=== PATIENT | female | born 1945 | race Caucasian/White ===

== ENCOUNTER 2019-08-10 21:04 | Emergency (ER) | payer MEDICARE ==
[2019-08-10 22:08] LABS: ABSOLUTE BASOPHILS # (AUTO) 0.1 10^3/uL (0.0-0.2); ABSOLUTE EOSINOPHILS # (AUTO) 0.1 10^3/uL (0.0-0.6); ABSOLUTE LYMPHOCYTES (AUTO) 1.3 10^3/uL (0.5-4.7); ABSOLUTE MONOCYTES (AUTO) 0.6 10^3/uL (0.1-1.4); ABSOLUTE NEUT (AUTO) 4.3 10^3/uL (1.7-8.2); EOSINOPHILS % (AUTO) 2.1 % (0-6); HEMATOCRIT 37.7 % (36.0-47.0); HEMOGLOBIN 12.5 g/dL (12.0-15.5); LYMPHOCYTES % (AUTO) 19.6 % (13-45); MEAN CORPUSCULAR HEMOGLOBIN 26.7 pg (27.0-33.4); MEAN CORPUSCULAR HGB CONC 33.2 g/dL (32.0-36.0); MEAN CORPUSCULAR VOLUME 81 fl (80-97); MONOCYTES % (AUTO) 9.5 % (3-13); PLATELET COUNT 219 10^3/uL (150-450); RED BLOOD COUNT 4.69 10^6/uL (3.72-5.28); RED CELL DISTRIBUTION WIDTH 14.5 % (11.5-14.0); SEGMENTED NEUTROPHILS % (AUTO) 67.8 % (42-78); TOTAL CELLS COUNTED % (AUTO) 100 %; WHITE BLOOD COUNT 6.4 10^3/uL (4.0-10.5)
--- NOTE | 2019-08-10 22:24 | ER Document Report ---
ED General - General Chief Complaint: Other Stated Complaint: RIGHT FOOT/RIGHT LEG PAIN Time Seen by Provider: 08/10/19 21:40 Mode of Arrival: Ambulatory Information source: Patient Notes: 73-year-old female presented to ED for complaint of increasing bruising starting yesterday. She states she just moved to the area and has not gotten to see her primary care doctor yet. She states her primary care is [facility] in [place]. She states she does have a past medical history of hypothyroid, pedal edema, anxiety and depression. She has had gallbladder removed gastric bypass and a left knee replacement. She also has arthritis. She came today mainly because of the increase in bruising and her family members were concerned and wanted her to come to the doctor. She states she was not really concerned but to satisfy everybody she did come. We will get some blood work to ensure that there is no abnormalities in her platelets or blood work. TRAVEL OUTSIDE OF THE [place] IN LAST 30 DAYS: No - HPI Onset: Yesterday Onset/Duration: Gradual Quality of pain: No pain Severity: None Pain Level: 0 Associated symptoms: Other - Increased bruising to arms and legs Exacerbated by: Denies Relieved by: Denies Similar symptoms previously: Yes Recently seen / treated by doctor: No Past Medical History - General Information source: Patient - Social History Smoking Status: Never Smoker Chew tobacco use (# tins/day): No Frequency of alcohol use: None Drug Abuse: None Lives with: Family Family History: Reviewed & Not Pertinent Patient has suicidal ideation: No Patient has homicidal ideation: No - Past Medical History Cardiac Medical History: Reports: Other - Pedal edema Pulmonary Medical History: Reports: None EENT Medical History: Reports: None Neurological Medical History: Reports: None Endocrine Medical History: Reports: Hx Hypothyroidism Renal/ Medical History: Reports: None Malignancy Medical History: Reports: None GI Medical History: Reports: None Musculoskeletal Medical History: Reports Hx Arthritis, Reports Hx Musculoskeletal Deformity Skin Medical History: Reports None Psychiatric Medical History: Reports: Hx Anxiety, Hx Depression Traumatic Medical History: Reports: None Infectious Medical History: Reports: None Past Surgical History: Reports: Hx Cholecystectomy, Hx Gastric Bypass Surgery, Hx Orthopedic Surgery - Left knee replacement - Immunizations Immunizations up to date: Yes Review of Systems - Review of Systems Constitutional: No symptoms reported EENT: No symptoms reported Cardiovascular: No symptoms reported Respiratory: No symptoms reported Gastrointestinal: No symptoms reported Genitourinary: No symptoms reported Female Genitourinary: No symptoms reported Musculoskeletal: No symptoms reported Skin: Other - Creasing bruising Hematologic/Lymphatic: No symptoms reported Neurological/Psychological: No symptoms reported -: Yes All other systems reviewed and negative Physical Exam - Vital signs Vitals: Temp Pulse Resp BP Pulse Ox 97.8 F 128 H 18 147/88 H 95 08/10/19 21:09 08/10/19 21:09 08/10/19 21:09 08/10/19 21:09 08/10/19 21:09 Interpretation: Normal. No: Hypotensive, Hypertensive, Bradycardic, Tachycardic - 82, Hypoxic, Tachypneic, Febrile - General General appearance: Appears well, Alert - HEENT Head: Normocephalic, Atraumatic Eyes: Normal Pupils: PERRL - Respiratory Respiratory status: No respiratory distress Chest status: Nontender Breath sounds: Normal Chest palpation: Normal - Cardiovascular Rhythm: Regular Heart sounds: Normal auscultation Murmur: No - Abdominal Inspection: Normal Distension: No distension Bowel sounds: Normal Tenderness: Nontender Organomegaly: No organomegaly - Back Back: Normal, Nontender - Extremities General upper extremity: Normal inspection, Nontender, Normal color, Normal ROM, Normal temperature General lower extremity: Normal inspection, Nontender, Normal color, Normal ROM, Normal temperature, Normal weight bearing. No: Michelle's sign - Neurological Neuro grossly intact: Yes Cognition: Normal Orientation: AAOx4 [place] Coma Scale Eye Opening: Spontaneous Katty Coma Scale Verbal: Oriented [place] Coma Scale Motor: Obeys Commands Katty Coma Scale Total: 15 Speech: Normal Motor strength normal: LUE, RUE, LLE, RLE Sensory: Normal - Psychological Associated symptoms: Normal affect, Normal mood - Skin Skin Temperature: Warm Skin Moisture: Dry Skin Color: Normal, Ecchymosis - Increased bruising to arms and legs no pain at sites Course - Re-evaluation Re-evalutation: 08/10/19 23:30 Discussed labs with patient will report of labs given to patient to follow-up with her primary doctor. Will discharge patient home. Patient denies have any history of anything that should cause her pulse to be what it was shown at pit. I did get a pulse of 82. - Vital Signs Vital signs: Temp Pulse Resp BP Pulse Ox 97.8 F 128 H 18 147/88 H 95 08/10/19 21:09 08/10/19 21:09 08/10/19 21:09 08/10/19 21:09 08/10/19 21:09 - Laboratory Result Diagrams: 08/10/19 21:46 08/10/19 21:46 Laboratory results interpreted by me: 08/10/19 08/10/19 21:46 21:46 MCH 26.7 L RDW 14.5 H Carbon Dioxide 33 H BUN 24 H Glucose 131 H Total Protein 6.2 L Discharge - Discharge Clinical Impression: increased bruising to leg Condition: Stable Disposition: HOME, SELF-CARE Additional Instructions: You were seen today for increased bruising to the legs. He states there was no injuries. There is no tenderness to palpation. You will need to follow-up with your primary care doctor. Please put a call into him tomorrow and schedule an appointment. I have given you a copy of your lab reports please take these with you to the doctor. Please do not take any aspirin or ibuprofen or naproxen until you follow-up with the doctor. FOLLOW-UP CARE: If you have been referred to a physician for follow-up care, call the physicians office for an appointment as you were instructed or within the next two days. If you experience worsening or a significant change in your symptoms, notify the physician immediately or return to the Emergency Department at any time for re-evaluation.
[2019-08-10 22:26] LABS: ALBUMIN 3.7 g/dL (3.5-5.0); ALKALINE PHOSPHATASE 107 U/L (38-126); ANION GAP 6 (5-19); ASPARTATE AMINO TRANSFERASE 18 U/L (14-36); BILIRUBIN,DIRECT 0.1 mg/dL (0.0-0.4); BILIRUBIN,TOTAL 0.4 mg/dL (0.2-1.3); BLOOD UREA NITROGEN 24 mg/dL (7-20); CALCIUM 8.9 mg/dL (8.4-10.2); CARBON DIOXIDE 33 mmol/L (22-30); CHLORIDE 99 mmol/L (98-107); GLUCOSE 131 mg/dL (75-110); TOTAL PROTEIN 6.2 g/dL (6.3-8.2)
[2019-08-10 23:16] LABS: INTERNATIONAL RATION (INR) 0.99; PROTHROMBIN TIME 13.1 SEC (11.4-15.4)
[2019-08-10 23:17] LABS: PARTIAL THROMBOPLASTIN TIME 32.8 SEC (23.5-35.8)
[2019-08-10 23:33] VITALS: BP 145/80
== END 2019-08-10 23:33 | disposition home or self-care (01) ==
LOC: ER 21:04
DX: R23.3 Spontaneous ecchymoses (principal); M79.671 Pain in right foot; M79.601 Pain in right arm; Z98.84 Bariatric surgery status; Z96.652 Presence of left artificial knee joint
CPT/HCPCS: 36415; 80053; 85025; 85610; 85730; 99283

== ENCOUNTER 2020-01-06 08:16 | Day surgery (SDC) | payer MEDICARE, OTHER ==
[~2020-01-06 08:16] MED LIST: ACETAMINOPHEN 325 MG TABLET PO PRN; CEFAZOLIN 1 GM/D5W RTU 1 GM/50 ML RTUPB IV ONE; CEFAZOLIN 1 GM/D5W RTU 1 GM/50 ML RTUPB IV PRN; RINGERS SOLUTION,LACTATED 1,000 ML IV PRN
[2020-01-06 09:02] LABS: HEMATOCRIT 35.4 % (36.0-47.0); HEMOGLOBIN 11.9 g/dL (12.0-15.5); MEAN CORPUSCULAR HEMOGLOBIN 26.3 pg (27.0-33.4); MEAN CORPUSCULAR HGB CONC 33.7 g/dL (32.0-36.0); MEAN CORPUSCULAR VOLUME 78 fl (80-97); PLATELET COUNT 171 10^3/uL (150-450); RED BLOOD COUNT 4.52 10^6/uL (3.72-5.28)
[2020-01-06] MEDS ORDERED: BUPIVACAINE INJ/PF LIPOSOME/PF 266 MG/20 ML SDV ONE (09:02)
--- NOTE | 2020-01-06 09:03 | RADIOLOGY REPORT (SQ) ---
EXAM DESCRIPTION: CHEST SINGLE VIEW COMPLETED DATE/TIME: 01/06/2020 8:41 am REASON FOR STUDY: preop COMPARISON: None. EXAM PARAMETERS: NUMBER OF VIEWS: One view. TECHNIQUE: Single frontal radiographic view of the chest acquired. RADIATION DOSE: NA LIMITATIONS: None. FINDINGS: LUNGS AND PLEURA: No opacities, masses or pneumothorax. No pleural effusion. MEDIASTINUM AND HILAR STRUCTURES: No masses. Contour normal. HEART AND VASCULAR STRUCTURES: Heart normal in size. Normal vasculature. BONES: No acute findings. HARDWARE: None in the chest. OTHER: No other significant finding. IMPRESSION: NO ACUTE RADIOGRAPHIC FINDING IN THE CHEST. TECHNICAL DOCUMENTATION: JOB ID: [id number] 2010 [employer]- All Rights Reserved Reading location - IP/workstation name: [email or web address]
[2020-01-06 09:29] LABS: WHITE BLOOD COUNT 1.6 10^3/uL (4.0-10.5)
[2020-01-06 09:32] LABS: ABSOLUTE LYMPHOCYTES# (MANUAL) 0.4 10^3/uL (0.5-4.7); ABSOLUTE MONOCYTES # (MANUAL) 0.1 10^3/uL (0.1-1.4); BASOPHILS % (MANUAL) 0 % (0-2); EOSINOPHILS % (MANUAL) 10 % (0-6); LYMPHOCYTES % (MANUAL) 22 % (13-45); MONOCYTES % (MANUAL) 6 % (3-13); SEGMENTED NEUTROPHILS % (MAN) 62 % (42-78); TOTAL CELLS COUNTED 50
[2020-01-06 09:34] LABS: ANISOCYTOSIS 1+; OVALOCYTES SLIGHT; TEAR DROP CELLS SLIGHT; TOXIC GRANULATION SLIGHT
[2020-01-06 09:35] LABS: PLATELET COMMENT ADEQUATE
[2020-01-06] MEDS ORDERED: MIDAZOLAM 2 MG/2 ML INJ ONE (09:44)
[2020-01-06] MEDS ORDERED: FENTANYL CITRATE INJ/PF 100 MCG/2 ML AMPUL ONE (09:44)
[2020-01-06] MEDS ORDERED: PROPOFOL INJ 200 MG/20 ML VIAL IV ONE (09:44)
[2020-01-06] MEDS ORDERED: LIDOCAINE 1%/EPINEPHRINE INJ 20 ML VIAL ONE (10:06)
[2020-01-06] MEDS ORDERED: OXYCODONE-ACETAMINOPHEN 5-325 MG TABLET PO PRN ×3 (10:29→10:49)
[2020-01-06] MEDS ORDERED: ONDANSETRON HCL INJ/PF 4 MG/2 ML SDV IV PRN ×2 (10:29→13:38)
[2020-01-06] MEDS ORDERED: FENTANYL CITRATE INJ/PF 100 MCG/2 ML AMPUL IV PRN ×6 (10:29→13:38)
[2020-01-06] MEDS ORDERED: DIPHENHYDRAMINE HCL 50 MG/ML VIAL IV PRN ×2 (10:29→13:38)
[2020-01-06] MEDS ORDERED: MORPHINE SULFATE 10 MG/ML INJ IV PRN ×2 (10:29→13:38)
[2020-01-06] MEDS ORDERED: MEPERIDINE HCL/PF INJ 25 MG/1 ML DISP.SYRIN IV PRN ×2 (10:29→13:38)
[2020-01-06] MEDS ORDERED: ONDANSETRON HCL INJ/PF 4 MG/2 ML SDV ONE (10:36)
--- NOTE | 2020-01-06 10:47 | Operative Report ---
Nonrecallable Operative Report DATE OF SURGERY: 01/06/20 PREOPERATIVE DIAGNOSIS: Uterine cancer POSTOPERATIVE DIAGNOSIS: Uterine cancer OPERATION: Port-A-Cath placement right chest SURGEON: MIGUEL HILLMAN ANESTHESIA: Moderate Sedation TISSUE REMOVED OR ALTERED: None COMPLICATIONS: None ESTIMATED BLOOD LOSS: 10 cc PROCEDURE: Patient was brought to the operating awake alert stable condition placed in the operative supine position and given IV sedation. The right chest and neck were prepped and draped in usual sterile fashion for the procedure. Using 1% lidocaine with epinephrine a skin wheal was made on the anterior right chest wall and then the subclavian vein was cannulated with a 16-gauge needle. Through the needle we placed the J-wire confirmed on fluoroscopy to be in the superior vena cava. Over the J-wire we then placed the dilator introducer under direct vision wall under fluoroscopy and remove the wire. Through the introducer we then placed the catheter. The catheter was positioned in the supra vena cava. The tear- away introducer was torn away. Attention was then turned to the right chest wall. Skin wheal was made on the anterior right chest wall with 1% lidocaine with epinephrine. A transverse incision was made about 2 cm long dissection was carried down through subcutaneous tissue with the 15 blade a skin pocket was then created with the Bovie cautery. From the skin popped kit to the subclavian stick site we used the tunnel maker to a tunneled catheter. Was then cut to size and attached to the port which was placed underneath the skin. Good position was confirmed with fluoroscopy. The subcutaneous tissue was then reapproximated interrupted 3-0 Vicryl and the skin was reapproximated intracuticular 4-0 Biosyn. Steri-Strips completed the procedure. Sponge needle counts were correct x2 the patient was then transferred recovery in stable condition no complications
--- NOTE | 2020-01-06 10:48 | Discharge Summary ---
Discharge Summary (SDC) - Discharge Final Diagnosis: Uterine cancer Date of Surgery: 01/06/20 Discharge Date: 01/06/20 Condition: Good Referrals: GINI DENG PA-C [Primary Care Provider] - Discharge Activity: Activity As Tolerated Report the Following to Your Physician Immediately: Shortness of Breath - Patient is to follow-up in surgery clinic in 7 to 10 days
--- NOTE | 2020-01-06 11:20 | RADIOLOGY REPORT (SQ) ---
EXAM DESCRIPTION: CHEST SINGLE VIEW COMPLETED DATE/TIME: 01/06/2020 11:03 am REASON FOR STUDY: s/p liliya cath. COMPARISON: Earlier same day. EXAM PARAMETERS: NUMBER OF VIEWS: One view. TECHNIQUE: Single frontal radiographic view of the chest acquired. RADIATION DOSE: NA LIMITATIONS: None. FINDINGS: LUNGS AND PLEURA: No opacities, masses or pneumothorax. No pleural effusion. MEDIASTINUM AND HILAR STRUCTURES: No masses. Contour normal. HEART AND VASCULAR STRUCTURES: Heart normal in size. Normal vasculature. BONES: No acute findings. HARDWARE: None in the chest. OTHER: Right-sided port tip overlying SVC. IMPRESSION: Good position of right-sided port. No pneumothorax. TECHNICAL DOCUMENTATION: JOB ID: [id number] 2010 [employer]- All Rights Reserved Reading location - IP/workstation name: [email or web address]
--- NOTE | 2020-01-06 11:56 | RADIOLOGY REPORT (SQ) ---
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 FLUOROSCOPY TIME: 0.8 minutes 5 images saved to PACS. TECHNIQUE: Intra-operative images acquired during surgical procedure to evaluate progress. NUMBER OF IMAGES: 5 LIMITATIONS: None. FINDINGS: Right-sided central line tip overlies SVC. IMPRESSION: IMAGE(S) OBTAINED DURING PROCEDURE. COMMENT: Quality ID 145: Final reports for procedures using fluoroscopy that document radiation exp osure indices, or exposure time and number of fluorographic images (if radiation exposure indices are not available) Please consult full operative report of the attending physician for description of the procedure. TECHNICAL DOCUMENTATION: JOB ID: [id number] 2010 [employer]- All Rights Reserved Reading location - IP/workstation name: [email or web address]
[2020-01-06 12:33] VITALS: BP 132/66
== END 2020-01-06 12:10 | disposition home or self-care (01) ==
LOC: OROUT 08:16
PROVIDERS: ATTEND Surgery
DX: C54.3 Malignant neoplasm of fundus uteri (principal); Z79.899 Other long term (current) drug therapy; D64.9 Anemia, unspecified; E53.8 Deficiency of other specified B group vitamins; E03.9 Hypothyroidism, unspecified
CPT/HCPCS: 36561; 36415; 84132; 85025; 71045; 77001; C1766; C1788; Q9967; J2250; J0690; J3010; J3490; J2405; J2704; J1642; C9290

== ENCOUNTER → 2020-05-10 | Outpatient (CLI) | payer MEDICARE, OTHER ==
--- NOTE | 2020-05-10 09:38 | RADIOLOGY REPORT (SQ) ---
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 Images reviewed with lung, soft tissue and bone windows. Reconstructed coronal a nd sagittal MPR images reviewed. All images stored on PACS. All CT scanners at this facility use dose modulation, iterative reconstruction, and/or weight based d osing when appropriate to reduce radiation dose to as low as reasonably achievable (ALARA). [facility]: Dose Right [facility]: CareDose [facility]: Dose Right [facility]: Teradose 4D [facility]: [employer] RADIATION DOSE: CT Rad equipment meets quality standard of care and radiation dose reduction techniq ues were employed. CTDIvol: 8.2 - 14.5 mGy. DLP: 2811 mGy-cm. . LIMITATIONS: None. FINDINGS: AXILLAE: No adenopathy. CHEST WALL: No masses. No subcutaneous air. LUNGS: No lung nodules. No consolidation. PLEURA: Focal nodular pleural thickening in the left upper lobe posteriorly this is stable from prior study. THYROID: Not imaged. HILAR AND MEDIASTINAL STRUCTURES: No identified masses or abnormal nodes. AORTA AND GREAT VESSELS: No aneurysm. No dissection. PULMONARY ARTERIES: No identified pulmonary emboli. Study not optimized for the pulmonary arteries. HEART: No pericardial effusion. HARDWARE AND LIFELINES: Dsjile-U-Rszd is in place on the right. Catheter tip lies in the SVC. BONES: No significant finding. OTHER: No other significant finding. IMPRESSION: No evidence of metastatic disease in the chest. COMPARISON: None. RADIATION DOSE: CT Rad equipment meets quality standard of care and radiation dose reduction techniq ues were employed. CTDIvol: 8.2 - 14.5 mGy. DLP: 2811 mGy-cm. mGy. TECHNIQUE: CT scan of the abdomen and pelvis performed with intravenous and oral contrast using lisa matt scanning technique with dynamic intravenous contrast injection. Images reviewed with lung, soft tissue and bone windows. Reconstructed coronal and sagittal MPR images reviewed. Delayed images for evaluation of the urinary system also acquired and evaluated. All images stored on PACS. All CT scanners at this facility use dose modulation, iterative reconstruction, and/or weight based d osing when appropriate to reduce radiation dose to as low as reasonably achievable (ALARA). [facility]: Dose Right [facility]: [employer] [facility]: Dose Right [facility]: Teradose 4D [facility]: [employer] FINDINGS: LIVER: No masses. Normal size. Mild intrahepatic biliary ductal dilatation which is unch anged from prior study. SPLEEN: Normal size. No focal lesions. PANCREAS: No masses. No significant calcifications. No adjacent inflammation or peripancreatic flui d collections. Pancreatic duct not dilated. GALLBLADDER: Prior cholecystectomy. ADRENAL GLANDS: No significant masses or asymmetry. RIGHT KIDNEY AND URETER: No solid masses. Numerous peripelvic cysts. No significant calcifications . No hydronephrosis or hydroureter. LEFT KIDNEY AND URETER: No solid masses. Numerous peripelvic cysts. No significant calcifications. No hydronephrosis or hydroureter. AORTA AND VESSELS: No aneurysm. No dissection. Renal arteries, SMA, celiac without stenosis. RETROPERITONEUM: No retroperitoneal adenopathy, hemorrhage or masses. LARGE AND SMALL BOWEL: No dilatation. No masses. No wall thickening. APPENDIX: Not visualized. ABDOMINAL WALL: No hernia or masses. PERITONEAL CAVITY: No free air. No free fluid. No peritoneal implants or masses. PELVIS: Prior hysterectomy. BONES: No significant or acute findings. OTHER: No other significant finding. IMPRESSION: No evidence of metastatic disease in the abdomen or pelvis. TECHNICAL DOCUMENTATION: JOB ID: [id number] Quality ID # 436: Final reports with documentation of one or more dose reduction techniques (e.g., Au tomated exposure control, adjustment of the mA and/or kV according to patient size, use of iterative reconstruction technique) 2010 [employer]- All Rights Reserved Reading location - IP/workstation name: [email or web address]
--- NOTE | 2020-05-10 09:38 | RADIOLOGY REPORT (SQ) ---
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 Images reviewed with lung, soft tissue and bone windows. Reconstructed coronal a nd sagittal MPR images reviewed. All images stored on PACS. All CT scanners at this facility use dose modulation, iterative reconstruction, and/or weight based d osing when appropriate to reduce radiation dose to as low as reasonably achievable (ALARA). [facility]: Dose Right [facility]: CareDose [facility]: Dose Right [facility]: Teradose 4D [facility]: [employer] RADIATION DOSE: CT Rad equipment meets quality standard of care and radiation dose reduction techniq ues were employed. CTDIvol: 8.2 - 14.5 mGy. DLP: 2811 mGy-cm. . LIMITATIONS: None. FINDINGS: AXILLAE: No adenopathy. CHEST WALL: No masses. No subcutaneous air. LUNGS: No lung nodules. No consolidation. PLEURA: Focal nodular pleural thickening in the left upper lobe posteriorly this is stable from prior study. THYROID: Not imaged. HILAR AND MEDIASTINAL STRUCTURES: No identified masses or abnormal nodes. AORTA AND GREAT VESSELS: No aneurysm. No dissection. PULMONARY ARTERIES: No identified pulmonary emboli. Study not optimized for the pulmonary arteries. HEART: No pericardial effusion. HARDWARE AND LIFELINES: Hcctks-W-Faua is in place on the right. Catheter tip lies in the SVC. BONES: No significant finding. OTHER: No other significant finding. IMPRESSION: No evidence of metastatic disease in the chest. COMPARISON: None. RADIATION DOSE: CT Rad equipment meets quality standard of care and radiation dose reduction techniq ues were employed. CTDIvol: 8.2 - 14.5 mGy. DLP: 2811 mGy-cm. mGy. TECHNIQUE: CT scan of the abdomen and pelvis performed with intravenous and oral contrast using lisa matt scanning technique with dynamic intravenous contrast injection. Images reviewed with lung, soft tissue and bone windows. Reconstructed coronal and sagittal MPR images reviewed. Delayed images for evaluation of the urinary system also acquired and evaluated. All images stored on PACS. All CT scanners at this facility use dose modulation, iterative reconstruction, and/or weight based d osing when appropriate to reduce radiation dose to as low as reasonably achievable (ALARA). [facility]: Dose Right [facility]: SureCare [facility]: Dose Right [facility]: Teradose 4D [facility]: [employer] FINDINGS: LIVER: No masses. Normal size. Mild intrahepatic biliary ductal dilatation which is unch anged from prior study. SPLEEN: Normal size. No focal lesions. PANCREAS: No masses. No significant calcifications. No adjacent inflammation or peripancreatic flui d collections. Pancreatic duct not dilated. GALLBLADDER: Prior cholecystectomy. ADRENAL GLANDS: No significant masses or asymmetry. RIGHT KIDNEY AND URETER: No solid masses. Numerous peripelvic cysts. No significant calcifications . No hydronephrosis or hydroureter. LEFT KIDNEY AND URETER: No solid masses. Numerous peripelvic cysts. No significant calcifications. No hydronephrosis or hydroureter. AORTA AND VESSELS: No aneurysm. No dissection. Renal arteries, SMA, celiac without stenosis. RETROPERITONEUM: No retroperitoneal adenopathy, hemorrhage or masses. LARGE AND SMALL BOWEL: No dilatation. No masses. No wall thickening. APPENDIX: Not visualized. ABDOMINAL WALL: No hernia or masses. PERITONEAL CAVITY: No free air. No free fluid. No peritoneal implants or masses. PELVIS: Prior hysterectomy. BONES: No significant or acute findings. OTHER: No other significant finding. IMPRESSION: No evidence of metastatic disease in the abdomen or pelvis. TECHNICAL DOCUMENTATION: JOB ID: [id number] Quality ID # 436: Final reports with documentation of one or more dose reduction techniques (e.g., Au tomated exposure control, adjustment of the mA and/or kV according to patient size, use of iterative reconstruction technique) 2010 [employer]- All Rights Reserved Reading location - IP/workstation name: [email or web address]
== END ==
LOC: RAD 08:33
PROVIDERS: ATTEND Internal Medicine
DX: C54.3 Malignant neoplasm of fundus uteri (principal)
CPT/HCPCS: 71260; 74177; 82565

== ENCOUNTER 2020-07-28 08:57 | Inpatient (IN) | payer MEDICARE, OTHER ==
[2020-07-28] MEDS ORDERED: FENTANYL CITRATE INJ/PF 100 MCG/2 ML AMPUL IV ONE (10:36)
[2020-07-28] MEDS ORDERED: ONDANSETRON HCL INJ/PF 4 MG/2 ML SDV IV ONE (10:37)
[2020-07-28] MEDS ORDERED: NORMAL SALINE 1000 ML 500 ML IV ONE (10:37)
--- NOTE | 2020-07-28 11:01 | ER Document Report ---
Entered by JHON ADHIKARI SCRIBE 07/28/20 1028 Acting as scribe for:CINDY RAMIERZ MD ED General - General Chief Complaint: R sided hip pain Stated Complaint: FALL Time Seen by Provider: 07/28/20 10:25 Primary Care Provider: JOSETTE CESAR [NO FARHAD MD] - Follow up as needed Mode of Arrival: Ambulatory Information source: Patient Notes: This 74 year old female patient presents to the emergency department today with complaints of right hip pain resulting from a fall. Patient reports that she was getting up to go to the bathroom and she thinks her foot got tangled in her bed comforter and she fell. She reports initially she didn't feel much pain but when her son came to help her back into bed she had excruciating pain. Patient reports that if he lies perfectly still on her left side she does not have any pain but any movement causes severe pain. Patient mentions that she must have hit her eye during the fall as there is a small bruise to her left upper eyelid. Patient's past history is significant for uterine cancer treated with hysterectomy, chemotherapy which she has finished, and radiation therapy which she finished about 3 weeks ago. TRAVEL OUTSIDE OF THE [place] IN LAST 30 DAYS: No - Related Data Allergies/Adverse Reactions: No Known Allergies Allergy (Verified 07/28/20 12:08) Home Medications: thyroid medication, anti-depressant, anti-anxiety, started Bactrim for UTI Past Medical History - General Information source: Patient - Social History Smoking Status: Never Smoker Cigarette use (# per day): No Chew tobacco use (# tins/day): No Smoking Education Provided: No Frequency of alcohol use: Rare Drug Abuse: None Lives with: Family Family History: Reviewed & Not Pertinent - Past Medical History Cardiac Medical History: Reports: Hx Hypercholesterolemia, Hx Hypertension Endocrine Medical History: Reports: Hx Hypothyroidism Renal/ Medical History: Reports: Hx Kidney Stones Malignancy Medical History: Reports: Other - Uterine cancer treated with hysterectomy, chemotherapy, and radiation thera Musculoskeletal Medical History: Reports Hx Arthritis, Reports Hx Musculoskeletal Deformity Psychiatric Medical History: Reports: Hx Anxiety, Hx Depression Past Surgical History: Reports: Hx Cholecystectomy, Hx Gastric Bypass Surgery - B2 with a Marilyn-en-Y, Hx Hysterectomy, Hx Orthopedic Surgery - Left knee replacement - Immunizations Immunizations up to date: Yes Hx Pneumococcal Vaccination: 07/20/20 Review of Systems - Review of Systems Constitutional: No symptoms reported EENT: No symptoms reported Cardiovascular: No symptoms reported Respiratory: No symptoms reported Gastrointestinal: No symptoms reported Genitourinary: No symptoms reported Female Genitourinary: No symptoms reported Musculoskeletal: See HPI, Joint pain - right hip Skin: No symptoms reported Hematologic/Lymphatic: No symptoms reported Neurological/Psychological: No symptoms reported -: Yes All other systems reviewed and negative Physical Exam - Vital signs Vitals: Temp Pulse Resp BP Pulse Ox 98.4 F 104 H 20 136/61 H 96 07/28/20 09:17 07/28/20 09:17 07/28/20 09:17 07/28/20 09:17 07/28/20 09:17 - Notes Notes: Physical Exam: General: Alert, appears uncomfortable. HEENT: Normocephalic. Atraumatic. PERRL. Extraocular movements intact. Oropharynx clear. Neck: Supple. Non-tender. Respiratory: No respiratory distress. Clear and equal breath sounds bilaterally. Cardiovascular: Regular rate and rhythm. Abdominal: Normal Inspection. Non-tender. No distension. Normal Bowel Sounds. Back: No gross abnormalities. Upper extremities: Normal inspection. Normal ROM. Lower extremities: Exquisite right hip tenderness to palpation. RLE is shortened and externally rotated. Wearing a pelvic binder. Neurological: Normal cognition. AAOx4. Normal speech. Psychological: Normal affect. Normal Mood. Skin: Warm. Dry. Normal color. Course - Vital Signs Vital signs: Temp Pulse Resp BP Pulse Ox 98.4 F 104 H 20 136/61 H 96 07/28/20 09:17 07/28/20 09:17 07/28/20 09:17 07/28/20 09:17 07/28/20 09:17 - Laboratory Result Diagrams: 07/28/20 11:18 07/28/20 11:18 Laboratory results interpreted by me: 07/28/20 07/28/20 07/28/20 11:18 11:18 12:13 RBC 3.15 L Hgb 10.5 L Hct 29.2 L RDW 14.8 H Plt Count 145 L Seg Neuts % (Manual) 88 H Lymphocytes % (Manual) 10 L Monocytes % (Manual) 2 L Abs Lymphs (Manual) 0.4 L Glucose 123 H Urine Protein 30 H Urine Urobilinogen 2.0 H Ur Leukocyte Esterase LARGE H - Diagnostic Test Radiology reviewed: Image reviewed, Reports reviewed - Right hip intertrochanteric fracture. Chest x-ray does not show acute changes, there is a right-sided Port-A-Cath. - EKG Interpretation by Me EKG shows normal: Sinus rhythm, [place], Intervals, QRS Complexes, ST-T Waves Rate: Tachycardia - 101 [place]/QRS: RBBB, IVCD Voltage: Consistent with LVH When compared to previous EKG there are: Previous EKG unavailable - Consults Dr. Simon Time consulted: 11:32 Consulted provider: will see as inpatient Dr. Patterson Time consulted: 12:38 Consulted provider: will come to ER Discharge - Discharge Clinical Impression: Closed right hip fracture Qualifiers: Encounter type: initial encounter Qualified Code(s): S72.001A - Fracture of unspecified part of neck of right femur, initial encounter for closed fracture Condition: Stable Disposition: ADMITTED INPATIENT Admitting Provider: Leonardo (Hospitalist) Unit Admitted: Surgical Floor Referrals: LOCALMD,NO [NO LOCAL MD] - Follow up as needed I personally performed the services described in the documentation, reviewed and edited the documentation which was dictated to the scribe in my presence, and it accurately records my words and actions.
--- NOTE | 2020-07-28 11:20 | RADIOLOGY REPORT (SQ) ---
EXAM DESCRIPTION: CHEST SINGLE VIEW IMAGES COMPLETED DATE/TIME: 07/28/2020 11:10 am REASON FOR STUDY: fall, hip pain COMPARISON: CT chest 12/08/2019 Chest films 01/06/2020 EXAM PARAMETERS: NUMBER OF VIEWS: One view. TECHNIQUE: Single frontal radiographic view of the chest acquired. RADIATION DOSE: NA LIMITATIONS: Lordotic portable film FINDINGS: LUNGS AND PLEURA: No opacities, masses or pneumothorax. No pleural effusion. MEDIASTINUM AND HILAR STRUCTURES: No masses. Contour normal. HEART AND VASCULAR STRUCTURES: Heart normal in size. Normal vasculature. BONES: No acute findings. HARDWARE: Right-sided permanent central line tip superior vena cava OTHER: No other significant finding. IMPRESSION: NO ACUTE RADIOGRAPHIC FINDING IN THE CHEST. TECHNICAL DOCUMENTATION: JOB ID: [id number] 2010 [employer]- All Rights Reserved Reading location - IP/workstation name: [email or web address]
--- NOTE | 2020-07-28 11:22 | RADIOLOGY REPORT (SQ) ---
EXAM DESCRIPTION: HIP RIGHT AP/LATERAL IMAGES COMPLETED DATE/TIME: 07/28/2020 11:10 am REASON FOR STUDY: fall, hip pain COMPARISON: None. NUMBER OF VIEWS: Two views. TECHNIQUE: AP pelvis and additional surgical lateralview of the right hip. LIMITATIONS: Buckle artifact over the left hip on the AP pelvis film FINDINGS: MINERALIZATION: Normal. RIGHT HIP: Acute intertrochanteric right proximal femoral fracture with significant varus angulation and foreshortening at the fracture site LEFT HIP: Partly obscured by artifact from buckle. No fracture or dislocation. No worrisome bone le sions. Limited views. PUBIS AND ISCHIUM: No fracture. PELVIS: No fracture. SACRUM: No fracture or dislocation. No worrisome bone lesions. LOWER LUMBAR SPINE: No fracture or dislocation. No worrisome bone lesions. No significant disc disea se. SOFT TISSUES: No findings. OTHER: No other significant finding. IMPRESSION: Acute right proximal femur intertrochanteric fracture with significant varus angulation and foreshortening at the fracture site TECHNICAL DOCUMENTATION: JOB ID: [id number] 2010 [employer]- All Rights Reserved Reading location - IP/workstation name: [email or web address]
[2020-07-28 11:55] LABS: HEMATOCRIT 29.2 % (36.0-47.0); HEMOGLOBIN 10.5 g/dL (12.0-15.5); MEAN CORPUSCULAR HEMOGLOBIN 33.2 pg (27.0-33.4); MEAN CORPUSCULAR HGB CONC 35.9 g/dL (32.0-36.0); MEAN CORPUSCULAR VOLUME 93 fl (80-97); PLATELET COUNT 145 10^3/uL (150-450); RED BLOOD COUNT 3.15 10^6/uL (3.72-5.28); RED CELL DISTRIBUTION WIDTH 14.8 % (11.5-14.0); WHITE BLOOD COUNT 4.1 10^3/uL (4.0-10.5)
[2020-07-28 12:23] LABS: ABSOLUTE LYMPHOCYTES# (MANUAL) 0.4 10^3/uL (0.5-4.7); ABSOLUTE MONOCYTES # (MANUAL) 0.1 10^3/uL (0.1-1.4); BASOPHILS % (MANUAL) 0 % (0-2); EOSINOPHILS % (MANUAL) 0 % (0-6); LYMPHOCYTES % (MANUAL) 10 % (13-45); MONOCYTES % (MANUAL) 2 % (3-13); SEGMENTED NEUTROPHILS % (MAN) 88 % (42-78); TOTAL CELLS COUNTED 100
[2020-07-28 12:25] LABS: ALBUMIN 4.1 g/dL (3.5-5.0); ALKALINE PHOSPHATASE 83 U/L (38-126); ANION GAP 8 (5-19); ANISOCYTOSIS SLIGHT; ASPARTATE AMINO TRANSFERASE 27 U/L (14-36); BILIRUBIN,DIRECT 0.3 mg/dL (0.0-0.4); BILIRUBIN,TOTAL 0.9 mg/dL (0.2-1.3); BLOOD UREA NITROGEN 14 mg/dL (7-20); CALCIUM 8.6 mg/dL (8.4-10.2); CARBON DIOXIDE 29 mmol/L (22-30); CHLORIDE 102 mmol/L (98-107); CREATINE KINASE 106 U/L (30-135); GLUCOSE 123 mg/dL (75-110); PLATELET COMMENT DECREASED; TOTAL PROTEIN 6.6 g/dL (6.3-8.2); TOXIC GRANULATION SLIGHT
[2020-07-28 12:36] LABS: APPEARANCE,URINE SLIGHTLY-CLOUDY; BILIRUBIN,URINE NEGATIVE (NEGATIVE); COLOR,URINE YELLOW; GLUCOSE, URINE NEGATIVE (NEGATIVE); KETONES,URINE NEGATIVE (NEGATIVE); LEUKOCYTE ESTERASE,URINE LARGE (NEGATIVE); NITRITE,URINE NEGATIVE (NEGATIVE); PROTEIN,URINE 30 mg/dL (NEGATIVE); URINE SPECIFIC GRAVITY 1.019
[2020-07-28] MEDS ORDERED: LEVOTHYROXINE SODIUM 0.1 MG TABLET PO ONE (12:42)
[2020-07-28] MEDS ORDERED: MAGNESIUM HYDROXIDE SUSP 30 ML UDCUP PO PRN (14:46)
[2020-07-28] MEDS ORDERED: GLUCAGON,HUMAN RECOMB 1 MG INJ SUBCUT PRN (14:46)
[2020-07-28] MEDS ORDERED: ONDANSETRON HCL INJ/PF 4 MG/2 ML SDV IV PRN (14:46)
[2020-07-28] MEDS ORDERED: IPRATROPIUM/ALBUTEROL 0.5-2.5 MG/3 ML AMPUL NEB PRN (14:46)
[2020-07-28] MEDS ORDERED: DEXTROSE 40% GEL 15 GM TUBE PO PRN ×2 (14:46)
[2020-07-28] MEDS ORDERED: PROMETHAZINE HCL INJ 25 MG/1 ML VIAL IV PRN (14:46)
[2020-07-28] MEDS ORDERED: DEXTROSE 50%-WATER 25 GM/50 ML DISP.SYRIN IV PRN ×2 (14:46)
[2020-07-28] MEDS: MORPHINE SULFATE 10 MG/ML INJ IV PRN ×2 (15:01→20:00)
--- NOTE | 2020-07-28 15:41 | PDOC CONSULTATION ---
Consultation Consult Date: 07/28/20 Provider Consulted: HARISH SANTIAGO JR Consult reason:: Right femoral neck fracture History of Present Illness Admission Date/PCP: 07/28/20 13:28 GINI DENG PA-C Patient complains of: Right hip pain History of Present Illness: WES RAINEY is a 74 year old female who presents to the emergency department with twisting last night resulting in a misstep and fall onto her right hip. She reports that she was up in the middle the night by her self to use the bathroom. After the fall she had severe pain in the right hip and inability to move or ambulate. She was brought to the emergency department where she was found to have a right femoral neck fracture. She reports aching pain that is 8 out of 10 with any potential motion, 5 out of 10 with rest. Pain is localized to the groin and right hip and does not radiate. She denies any other associated symptoms including loss of consciousness, presyncopal symptoms, head injury, loss of motor function or sensation to the right leg. She has a history of cervical cancer and just recently completed her radiation treatment. At this time she believes herself to be in remission. She denies any hip pain prior to the fall. She is confident that the direct landing on her right hip is what caused the fracture. Past Medical History Cardiac Medical History: Reports: Hyperlipidema, Hypertension Denies: Coronary Artery Disease, Myocardial Infarction Pulmonary Medical History: Denies: Asthma, Bronchitis, Chronic Obstructive Pulmonary Disease (COPD), Pneumonia Neurological Medical History: Denies: Seizures Endocrine Medical History: Reports: Hypothyroidism Malignancy Medical History: Reports: Other - Uterine cancer treated with hy sterectomy, chemotherapy, and radiation thera Musculoskeltal Medical History: Reports: Arthritis Psychiatric Medical History: Reports: Depression Hematology: Reports: Anemia Past Surgical History Past Surgical History: Reports: Cholecystectomy, Gastric Bypass Surgery - B2 with a Marilyn-en-Y, Hysterectomy, Orthopedic Surgery - Left knee replacement Social History Lives with: Family Smoking Status: Never Smoker Electronic Cigarette use?: No Family History Family History: Reviewed & Not Pertinent Parental Family History Reviewed: No Children Family History Reviewed: NA Sibling(s) Family History Reviewed.: NA Medication/Allergy Home Medications: Clonazepam [Klonopin] 1 mg PO DAILYP PRN 01/06/20 Fluoxetine HCl 40 mg PO Q2DAYS 01/06/20 Hydrochlorothiazide 12.5 mg PO DAILY 01/06/20 Levothyroxine Sodium 100 mcg PO DAILY 01/06/20 Duloxetine HCl [Cymbalta 30 mg Capsule.dr] 30 mg PO DAILY 07/28/20 Sulfamethoxazole/Trimethoprim [Bactrim Ds Tablet] 1 each PO BID 07/28/20 Allergies/Adverse Reactions: No Known Allergies Allergy (Verified 07/28/20 12:08) Review of Systems Review of Systems: Constitutional: ABSENT: anorexia, chills, night sweats Cardiovascular: ABSENT: chest pain Respiratory: ABSENT: dyspnea Gastrointestinal: ABSENT: vomiting Genitourinary: ABSENT: dysuria Integumentary: ABSENT: rash Neurological: ABSENT: confusion, memory loss, numbness Psychiatric: ABSENT: hallucinations Hematologic/Lymphatic: ABSENT: easy bleeding Physical Exam Vital Signs: Temp Pulse Resp BP Pulse Ox 98.4 F 104 H 15 130/65 H 94 07/28/20 09:17 07/28/20 09:17 07/28/20 13:01 07/28/20 13:00 07/28/20 13:01 Intake & Output 07/27/20 07/28/20 07/29/20 06:59 06:59 06:59 Intake Total 500 Balance 500 Weight 93.894 kg Physical Exam: General appearance: PRESENT: no acute distress, cooperative, well-nourished Head exam: PRESENT: atraumatic, normocephalic, poor dentition Eye exam: PRESENT: EOMI Ear exam: PRESENT: normal external ear exam Mouth exam: PRESENT: neck supple Neck exam: ABSENT: tracheal deviation Respiratory exam: PRESENT: symmetrical, unlabored. ABSENT: accessory muscle use, wheezes Pulses: PRESENT: normal radial pulses, normal dorsalis pedis pulse Vascular exam: PRESENT: normal capillary refill GI/Abdominal exam: ABSENT: distended, firm Extremities exam: PRESENT: full ROM of bilateral shoulders, elbows wrists, knees, hips and ankles without pain Musculoskeletal exam: PRESENT: full ROM, normal inspection of all 4 extremities aside from that noted below. Neurological exam: PRESENT: alert, awake, oriented to person, oriented to place, oriented to time Psychiatric exam: PRESENT: appropriate affect. ABSENT: agitated Focused psych exam: ABSENT: catatonic Skin exam: PRESENT: intact. ABSENT: dry All as above aside from that noted in the HPI and the following: Right lower extremity -Pulses 2+ distally -Compartments soft -Sensation grossly intact to L3-4-5 S1 -Motor grossly intact to EHL TA gastroc and quad Leg externally rotated and shortened Results Laboratory Results: 07/28/20 11:18 07/28/20 11:18 07/28/20 07/28/20 07/28/20 11:18 11:18 12:13 WBC 4.1 RBC 3.15 L Hgb 10.5 L Hct 29.2 L MCV 93 MCH 33.2 MCHC 35.9 RDW 14.8 H Plt Count 145 L Seg Neutrophils % Not Reportable Sodium 138.7 Potassium 4.0 Chloride 102 Carbon Dioxide 29 Anion Gap 8 BUN 14 Creatinine 0.53 Est GFR ( Amer) > 60 Glucose 123 H Calcium 8.6 Total Bilirubin 0.9 AST 27 Alkaline Phosphatase 83 Total Protein 6.6 Albumin 4.1 Urine Color YELLOW Urine Appearance SLIGHTLY-CLOUDY Urine pH 5.0 Ur Specific [place] 1.019 Urine Protein 30 H Urine Glucose (UA) NEGATIVE Urine Ketones NEGATIVE Urine Blood NEGATIVE Urine Nitrite NEGATIVE Ur Leukocyte Esterase LARGE H Urine WBC (Auto) 39 Urine RBC (Auto) 5 07/28/20 07/28/20 11:18 11:18 Creatine Kinase 106 Troponin I < 0.012 Impressions: Chest X-Ray 07/28/20 10:34 IMPRESSION: NO ACUTE RADIOGRAPHIC FINDING IN THE CHEST. Hip/Pelvis X-Ray 07/28/20 10:34 IMPRESSION: Acute right proximal femur intertrochanteric fracture with significant varus angulation and foreshortening at the fracture site Assessment & Plan - Diagnosis (1) Displaced fracture of right femoral neck Is this a current diagnosis for this admission?: Yes Plan: Patient will need preoperative clearance and medical work-up. We will order bone scan to evaluate for any potential metastasis including that of the right femur. Bedrest, consider Espinoza catheter Plan for operative intervention when cleared -Ancef to be given 2 g preoperatively Hold all chemical DVT prophylaxis the night of surgery We will plan for surgery potentially Friday morning pending bone scan results. (2) Closed right hip fracture Qualifiers: Encounter type: initial encounter Qualified Code(s): S72.001A - Fracture of unspecified part of neck of right femur, initial encounter for closed fracture
--- NOTE | 2020-07-28 16:39 | PDOC H&P ---
History of Present Illness Admission Date/PCP: 07/28/20 13:28 GINI DENG PA-C History of Present Illness: WES RAINEY is a 74 year old female past medical history of hyperlipidemia, hy pertension, hypothyroidism, arthritis, gastric bypass, cervical cancer status post chemoradiation, presenting to ED after mechanical fall. Patient is stating that she was getting up to go to the bathroom and her foot got tangled in her comforter and she fell to the ground, she denies sustaining any head trauma or passing out, she denies any lightheaded or palpitation or headache before the fall, patient denies any headache, lightheadedness, focal neurological symptoms, fever, chills, nausea, vomiting, diarrhea, constipation or any urinary symptoms. In ED of right hip x-ray showed proximal intertrochanteric fracture with significant varus angulation on foreshortening of the site of fracture. Orthopedic surgery was consulted and patient is planned to have surgery, medicine was conated for admision for medical management. Past Medical History Cardiac Medical History: Reports: Hyperlipidema, Hypertension Denies: Coronary Artery Disease, Myocardial Infarction Pulmonary Medical History: Denies: Asthma, Bronchitis, Chronic Obstructive Pulmonary Disease (COPD), Pneumonia Neurological Medical History: Denies: Seizures Endocrine Medical History: Reports: Hypothyroidism Malignancy Medical History: Reports: Other - Uterine cancer treated with h ysterectomy, chemotherapy, and radiation thera Musculoskeltal Medical History: Reports: Arthritis Psychiatric Medical History: Reports: Depression Hematology: Reports: Anemia Past Surgical History Past Surgical History: Reports: Cholecystectomy, Gastric Bypass Surgery - B2 with a Marilyn-en-Y, Hysterectomy, Orthopedic Surgery - Left knee replacement Social History Lives with: Family Smoking Status: Never Smoker Electronic Cigarette use?: No Family History Family History: Reviewed & Not Pertinent Parental Family History Reviewed: Yes Children Family History Reviewed: Yes Sibling(s) Family History Reviewed.: Yes Medication/Allergy Home Medications: Clonazepam [Klonopin] 1 mg PO DAILYP PRN 01/06/20 Fluoxetine HCl 40 mg PO Q2DAYS 01/06/20 Hydrochlorothiazide 12.5 mg PO DAILY 01/06/20 Levothyroxine Sodium 100 mcg PO DAILY 01/06/20 Duloxetine HCl [Cymbalta 30 mg Capsule.dr] 30 mg PO DAILY 07/28/20 Sulfamethoxazole/Trimethoprim [Bactrim Ds Tablet] 1 each PO BID 07/28/20 Allergies/Adverse Reactions: No Known Allergies Allergy (Verified 07/28/20 12:08) Physical Exam Vital Signs: Temp Pulse Resp BP Pulse Ox 98.4 F 104 H 15 130/65 H 94 07/28/20 09:17 07/28/20 09:17 07/28/20 13:01 07/28/20 13:00 07/28/20 13:01 Intake & Output 07/27/20 07/28/20 07/29/20 06:59 06:59 06:59 Intake Total 500 Balance 500 Weight 93.894 kg General appearance: PRESENT: no acute distress, obese Head exam: PRESENT: atraumatic, normocephalic Respiratory exam: PRESENT: clear to auscultation cullen. ABSENT: rales, rhonchi, wheezes Cardiovascular exam: PRESENT: RRR. ABSENT: diastolic murmur, rubs, systolic murmur GI/Abdominal exam: PRESENT: normal bowel sounds, soft. ABSENT: distended, guarding, mass, organolmegaly, rebound, tenderness Extremities exam: PRESENT: full ROM, other - Right lower extremity flexed and internally rotated patient refused to move her leg. Neurovascularly intact.. ABSENT: calf tenderness, clubbing, pedal edema Neurological exam: PRESENT: alert, awake, oriented to person, oriented to place, oriented to time, oriented to situation, CN II-XII grossly intact. ABSENT: motor sensory deficit Results Laboratory Results: 07/28/20 11:18 07/28/20 11:18 07/28/20 07/28/20 07/28/20 11:18 11:18 12:13 WBC 4.1 RBC 3.15 L Hgb 10.5 L Hct 29.2 L MCV 93 MCH 33.2 MCHC 35.9 RDW 14.8 H Plt Count 145 L Seg Neutrophils % Not Reportable Sodium 138.7 Potassium 4.0 Chloride 102 Carbon Dioxide 29 Anion Gap 8 BUN 14 Creatinine 0.53 Est GFR ( Amer) > 60 Glucose 123 H Calcium 8.6 Total Bilirubin 0.9 AST 27 Alkaline Phosphatase 83 Total Protein 6.6 Albumin 4.1 Urine Color YELLOW Urine Appearance SLIGHTLY-CLOUDY Urine pH 5.0 Ur Specific [place] 1.019 Urine Protein 30 H Urine Glucose (UA) NEGATIVE Urine Ketones NEGATIVE Urine Blood NEGATIVE Urine Nitrite NEGATIVE Ur Leukocyte Esterase LARGE H Urine WBC (Auto) 39 Urine RBC (Auto) 5 07/28/20 07/28/20 11:18 11:18 Creatine Kinase 106 Troponin I < 0.012 Impressions: Chest X-Ray 07/28/20 10:34 IMPRESSION: NO ACUTE RADIOGRAPHIC FINDING IN THE CHEST. Hip/Pelvis X-Ray 07/28/20 10:34 IMPRESSION: Acute right proximal femur intertrochanteric fracture with significant varus angulation and foreshortening at the fracture site Assessment and Plan - Diagnosis (1) Displaced fracture of right femoral neck Is this a current diagnosis for this admission?: Yes Plan: Due to mechanical fall. Given history of gastric bypass and history of malignancy patient may have underlying osteoporosis or metastatic bone disease. Pending bone scan. We will also check for vitamin D. Patient will have to follow-up with PCP, rheumatology and oncology after the surgery Orthopedic surgery consulted. Possible surgery Friday or Friday. (2) Hypertension Qualifiers: Hypertension type: essential hypertension Qualified Code(s): I10 - Essential (primary) hypertension Is this a current diagnosis for this admission?: Yes Plan: Euvolemic. Normotensive. Resume home meds. Adjust meds as needed. PRN IV h ydralazine and metoprolol. (3) Obesity Qualifiers: Obesity type: due to excess calories Body mass index: BMI 35.0-35.9 Is this a current diagnosis for this admission?: Yes Plan: BMI 35.5. Status post gastric bypass. Diet and lifestyle modification recommended. (4) Hypothyroidism Qualifiers: Hypothyroidism type: acquired Qualified Code(s): E03.9 - Hypothyroidism, unspecified Is this a current diagnosis for this admission?: Yes Plan: Resume home meds. (5) Cervical cancer Is this a current diagnosis for this admission?: Yes Plan: Status post chemoradiation. Followed by Dr. Douglas. Outpatient PCP and oncology follow-up. (6) Hyperlipidemia Is this a current diagnosis for this admission?: Yes Plan: Resume home meds. - Time Time Spent with patient: 35 or more minutes Medications reviewed and adjusted accordingly: Yes Anticipated Discharge Disposition: Home with Home Health Anticipated Discharge Timeframe: within 72 hours
[2020-07-28] MEDS ORDERED: CLONAZEPAM 1 MG TABLET PO PRN (16:46)
[2020-07-28] MEDS: NORMAL SALINE 1000 ML 1,000 ML IV PRN (17:05)
[2020-07-28] MEDS: DULOXETINE HCL 30 MG CAPSULE.DR PO SCH (18:11)
[2020-07-28] MEDS: HEPARIN SOD (PORCINE) 5,000 UNIT/ML 1 ML VIAL SUBCUT SCH (21:07)
[2020-07-28] MEDS: FAMOTIDINE 20 MG TABLET PO SCH (21:07)
[2020-07-29] MEDS: MORPHINE SULFATE 10 MG/ML INJ IV PRN ×5 (00:19→17:04)
--- NOTE | 2020-07-29 00:52 | EKG REPORT ---
SEVERITY:- ABNORMAL ECG - SINUS TACHYCARDIA RBBB LVH WITH IVCD AND SECONDARY REPOL ABNRM : Confirmed by: Tara Reagan MD 29-Jul-2020 00:51:29
[2020-07-29] MEDS: LEVOTHYROXINE SODIUM 0.1 MG TABLET PO SCH (05:03)
[2020-07-29] MEDS: HEPARIN SOD (PORCINE) 5,000 UNIT/ML 1 ML VIAL SUBCUT SCH ×3 (05:29→22:14)
[2020-07-29 06:00] LABS: ABSOLUTE EOSINOPHILS # (AUTO) 0.1 10^3/uL (0.0-0.6); ABSOLUTE LYMPHOCYTES (AUTO) 0.2 10^3/uL (0.5-4.7); ABSOLUTE MONOCYTES (AUTO) 0.4 10^3/uL (0.1-1.4); ABSOLUTE NEUT (AUTO) 2.7 10^3/uL (1.7-8.2); BASOPHILS % (AUTO) 0.3 % (0-2); EOSINOPHILS % (AUTO) 1.8 % (0-6); HEMATOCRIT 25.5 % (36.0-47.0); LYMPHOCYTES % (AUTO) 6.6 % (13-45); MEAN CORPUSCULAR HEMOGLOBIN 33.2 pg (27.0-33.4); MEAN CORPUSCULAR HGB CONC 35.6 g/dL (32.0-36.0); MEAN CORPUSCULAR VOLUME 93 fl (80-97); MONOCYTES % (AUTO) 11.3 % (3-13); RED BLOOD COUNT 2.73 10^6/uL (3.72-5.28); RED CELL DISTRIBUTION WIDTH 14.4 % (11.5-14.0); TOTAL CELLS COUNTED % (AUTO) 100 %; WHITE BLOOD COUNT 3.3 10^3/uL (4.0-10.5)
[2020-07-29 06:26] LABS: ALKALINE PHOSPHATASE 67 U/L (38-126); ANION GAP 6 (5-19); ASPARTATE AMINO TRANSFERASE 18 U/L (14-36); BILIRUBIN,DIRECT 0.2 mg/dL (0.0-0.4); BILIRUBIN,TOTAL 1.2 mg/dL (0.2-1.3); BLOOD UREA NITROGEN 16 mg/dL (7-20); CALCIUM 8.2 mg/dL (8.4-10.2); CARBON DIOXIDE 30 mmol/L (22-30); CHLORIDE 100 mmol/L (98-107); GLUCOSE 136 mg/dL (75-110); POTASSIUM 3.8 mmol/L (3.6-5.0); TOTAL PROTEIN 5.2 g/dL (6.3-8.2)
[2020-07-29 06:34] LABS: PLATELET COUNT 92 10^3/uL (150-450)
[2020-07-29] MEDS: NORMAL SALINE 1000 ML 1,000 ML IV PRN ×3 (06:39→23:48)
[2020-07-29] MEDS ORDERED: CHOLECALCIFEROL (D3) 1,000 UNIT (25 MCG) TABLET PO ONE (08:05)
[2020-07-29] MEDS ORDERED: ERGOCALCIFEROL (VITAMIN D2) 50000 UNIT (1.25 MG) CAPSULE PO ONE ×2 (09:00→13:15)
[2020-07-29] MEDS: MULTIVITAMIN TABLET PO SCH (09:46)
[2020-07-29] MEDS: CALCIUM CARBONATE 600 MG TABLET PO SCH ×2 (09:46→18:26)
[2020-07-29] MEDS: CYANOCOBALAMIN (VITAMIN B-12) INJ 1000 MCG/1 ML VIAL IM SCH (09:46)
[2020-07-29] MEDS: FAMOTIDINE 20 MG TABLET PO SCH ×2 (09:46→22:14)
[2020-07-29] MEDS: DULOXETINE HCL 30 MG CAPSULE.DR PO SCH (09:46)
[2020-07-29] MEDS ORDERED: MULTIVITAMINS W-IRON TABLET, CHEWABLE PO SCH (10:00)
--- NOTE | 2020-07-29 14:15 | PDOC PROGRESS REPORT ---
Subjective Progress Note for:: 07/29/20 Subjective:: WES RAINEY is a 74 year old female past medical history of hyperlipidemia, hypertension, hypothyroidism, arthritis, gastric bypass, cervical cancer status post chemoradiation, presenting to ED after mechanical fall. Patient is stating that she was getting up to go to the bathroom and her foot got tangled in her comforter and she fell to the ground, she denies sustaining any head trauma or passing out, she denies any lightheaded or palpitation or headache before the fall, patient denies any headache, lightheadedness, focal neurological symptoms, fever, chills, nausea, vomiting, diarrhea, constipation or any urinary symptoms. In ED of right hip x-ray showed proximal intertrochanteric fracture with significant varus angulation on foreshortening of the site of fracture. Orthopedic surgery was consulted and patient is planned to have surgery, medicine was conated for admision for medical management. 07/29/2020. No acute events overnight. Patient's surgery has been delayed until Friday pending bone scan, comfortably resting in bed no apparent distress stating that she only hurts if she moves her leg, otherwise denies any fever, chills, nausea, vomiting, diarrhea, constipation or any urinary symptoms. Reason For Visit: HIP FRACTURE Physical Exam Vital Signs: Temp Pulse Resp BP Pulse Ox 98.2 F 86 17 123/59 L 94 07/29/20 11:26 07/29/20 11:26 07/29/20 11:26 07/29/20 11:26 07/29/20 11:26 Intake & Output 07/28/20 07/29/20 07/30/20 06:59 06:59 06:59 Intake Total 1500 733 Output Total 350 Balance 1150 733 Weight 96.9 kg General appearance: PRESENT: no acute distress, obese, well-developed, well- nourished Head exam: PRESENT: atraumatic, normocephalic Respiratory exam: PRESENT: clear to auscultation cullen. ABSENT: rales, rhonchi, wheezes Cardiovascular exam: PRESENT: RRR. ABSENT: diastolic murmur, rubs, systolic murmur GI/Abdominal exam: PRESENT: normal bowel sounds, soft. ABSENT: distended, guarding, mass, organolmegaly, rebound, tenderness Extremities exam: PRESENT: full ROM, other - Right lower extremity externally rotated, refused to move leg, neurovascularly intact.. ABSENT: calf tenderness, clubbing, pedal edema Neurological exam: PRESENT: alert, awake, oriented to person, oriented to place, oriented to time, oriented to situation, CN II-XII grossly intact. ABSENT: motor sensory deficit Results Laboratory Results: 07/29/20 05:08 07/29/20 05:08 07/29/20 07/29/20 05:08 05:08 WBC 3.3 L RBC 2.73 L Hgb 9.0 L Hct 25.5 L MCV 93 MCH 33.2 MCHC 35.6 RDW 14.4 H Plt Count 92 L Seg Neutrophils % 80.0 H Sodium 136.4 L Potassium 3.8 Chloride 100 Carbon Dioxide 30 Anion Gap 6 BUN 16 Creatinine 0.53 Est GFR ( Amer) > 60 Glucose 136 H Calcium 8.2 L Magnesium 1.8 Total Bilirubin 1.2 AST 18 Alkaline Phosphatase 67 Total Protein 5.2 L Albumin 3.0 L 07/28/20 07/28/20 11:18 11:18 Creatine Kinase 106 Troponin I < 0.012 Impressions: Chest X-Ray 07/28/20 10:34 IMPRESSION: NO ACUTE RADIOGRAPHIC FINDING IN THE CHEST. Hip/Pelvis X-Ray 07/28/20 10:34 IMPRESSION: Acute right proximal femur intertrochanteric fracture with significant varus angulation and foreshortening at the fracture site Assessment and Plan - Diagnosis (1) Displaced fracture of right femoral neck Is this a current diagnosis for this admission?: Yes Plan: Due to mechanical fall. Given history of gastric bypass and history of malignancy patient may have underlying osteoporosis or metastatic bone disease. Pending bone scan. Vitamin D 13.9. Given 50,000 units of D3. Patient will have to follow-up with PCP, rheumatology and oncology after the surgery Orthopedic surgery consult, possible operation on Friday pending bone scan. (2) Hypertension Qualifiers: Hypertension type: essential hypertension Qualified Code(s): I10 - Essential (primary) hypertension Is this a current diagnosis for this admission?: Yes Plan: Euvolemic. Normotensive. Resume home meds. Adjust meds as needed. PRN IV hydralazine and metoprolol. (3) Obesity Qualifiers: Obesity type: due to excess calories Body mass index: BMI 35.0-35.9 Is this a current diagnosis for this admission?: Yes Plan: BMI 35.5. Status post gastric bypass. Diet and lifestyle modification recommended. (4) Hypothyroidism Qualifiers: Hypothyroidism type: acquired Qualified Code(s): E03.9 - Hypothyroidism, unspecified Is this a current diagnosis for this admission?: Yes Plan: Resume home meds. (5) Cervical cancer Is this a current diagnosis for this admission?: Yes Plan: Status post chemoradiation. Followed by Dr. Douglas. Outpatient PCP and oncology follow-up. (6) Hyperlipidemia Is this a current diagnosis for this admission?: Yes Plan: Resume home meds. (7) Vitamin D deficiency Is this a current diagnosis for this admission?: Yes Plan: Likely due to p.o. intake or due to low absorption given history of gastric bypass. Given 50,000. Patient encouraged to continue vitamin D as outpatient and follow-up with PCP. - Time Time Spent with patient: 25-34 minutes Medications reviewed and adjusted accordingly: Yes Anticipated Discharge Disposition: Home with Home Health Anticipated Discharge Timeframe: within 72 hours
[2020-07-29] MEDS: CEPHALEXIN 500 MG CAPSULE PO SCH (22:14)
[2020-07-30] MEDS: MORPHINE SULFATE 10 MG/ML INJ IV PRN ×6 (01:25→22:50)
[2020-07-30] MEDS: TEMAZEPAM 7.5 MG CAPSULE PO PRN ×2 (01:29→22:51)
[2020-07-30] MEDS: CEPHALEXIN 500 MG CAPSULE PO SCH ×3 (05:28→22:51)
[2020-07-30] MEDS: LEVOTHYROXINE SODIUM 0.1 MG TABLET PO SCH (05:28)
[2020-07-30] MEDS: HEPARIN SOD (PORCINE) 5,000 UNIT/ML 1 ML VIAL SUBCUT SCH ×3 (05:29→22:42)
[2020-07-30] MEDS: DULOXETINE HCL 30 MG CAPSULE.DR PO SCH (09:52)
[2020-07-30] MEDS: FLUOXETINE HCL 20 MG CAPSULE PO SCH (09:52)
[2020-07-30] MEDS: MULTIVITAMIN TABLET PO SCH (09:52)
[2020-07-30] MEDS: FAMOTIDINE 20 MG TABLET PO SCH ×2 (09:52→22:51)
[2020-07-30] MEDS: CALCIUM CARBONATE 600 MG TABLET PO SCH ×2 (09:52→18:48)
[2020-07-30] MEDS: NORMAL SALINE 1000 ML 1,000 ML IV PRN ×2 (09:55→19:40)
[2020-07-30] MEDS: CYANOCOBALAMIN (VITAMIN B-12) INJ 1000 MCG/1 ML VIAL IM SCH (09:58)
--- NOTE | 2020-07-30 11:42 | PDOC PROGRESS REPORT ---
Subjective Progress Note for:: 07/30/20 Subjective:: WES RAINEY is a 74 year old female past medical history of hyperlipidemia, hypertension, hypothyroidism, arthritis, gastric bypass, cervical cancer status post chemoradiation, presenting to ED after mechanical fall. Patient is stating that she was getting up to go to the bathroom and her foot got tangled in her comforter and she fell to the ground, she denies sustaining any head trauma or passing out, she denies any lightheaded or palpitation or headache before the fall, patient denies any headache, lightheadedness, focal neurological symptoms, fever, chills, nausea, vomiting, diarrhea, constipation or any urinary symptoms. In ED of right hip x-ray showed proximal intertrochanteric fracture with significant varus angulation on foreshortening of the site of fracture. Orthopedic surgery was consulted and patient is planned to have surgery, medicine was conated for admision for medical management. 07/29/2020. No acute events overnight. Patient's surgery has been delayed until Friday pending bone scan, comfortably resting in bed no apparent distress stating that she only hurts if she moves her leg, otherwise denies any fever, chills, nausea, vomiting, diarrhea, constipation or any urinary symptoms. 07/30/2020. No acute events overnight. Patient comfortably resting in no apparent distress, stating that her pain is well controlled with IV morphine, denies any fever, chills, nausea, vomiting, diarrhea, constipation or any urinary symptoms. Patient is pending surgery tomorrow if bone scan is done. Reason For Visit: HIP FRACTURE Physical Exam Vital Signs: Temp Pulse Resp BP Pulse Ox 98.3 F 92 16 115/45 L 97 07/30/20 08:00 07/30/20 08:00 07/30/20 08:00 07/30/20 08:00 07/30/20 08:00 Intake & Output 07/29/20 07/30/20 07/31/20 06:59 06:59 06:59 Intake Total 1500 2985 1000 Output Total 350 1235 Balance 1150 1750 1000 Weight 96.9 kg 98.6 kg General appearance: PRESENT: no acute distress, obese, well-developed, well- nourished Head exam: PRESENT: atraumatic, normocephalic Respiratory exam: PRESENT: clear to auscultation cullen. ABSENT: rales, rhonchi, wheezes Cardiovascular exam: PRESENT: RRR. ABSENT: diastolic murmur, rubs, systolic murmur GI/Abdominal exam: PRESENT: normal bowel sounds, soft. ABSENT: distended, guarding, mass, organolmegaly, rebound, tenderness Extremities exam: PRESENT: full ROM, other - Right lower extremity internally ro tated and flexed, neurovascular intact. Patient refused to move her hip fearing that might increase her pain.. ABSENT: calf tenderness, clubbing, pedal edema Neurological exam: PRESENT: alert, awake, oriented to person, oriented to place, oriented to time, oriented to situation, CN II-XII grossly intact. ABSENT: motor sensory deficit Skin exam: PRESENT: dry, intact, warm. ABSENT: cyanosis, rash Results Laboratory Results: 07/29/20 05:08 07/29/20 05:08 07/28/20 12:13 Espinoza Catheter Urine Culture - Final NO GROWTH 2 DAYS 07/28/20 07/28/20 11:18 11:18 Creatine Kinase 106 Troponin I < 0.012 Impressions: Chest X-Ray 07/28/20 10:34 IMPRESSION: NO ACUTE RADIOGRAPHIC FINDING IN THE CHEST. Hip/Pelvis X-Ray 07/28/20 10:34 IMPRESSION: Acute right proximal femur intertrochanteric fracture with sig nificant varus angulation and foreshortening at the fracture site Assessment and Plan - Diagnosis (1) Displaced fracture of right femoral neck Is this a current diagnosis for this admission?: Yes Plan: Due to mechanical fall. Given history of gastric bypass and history of malignancy patient may have underlying osteoporosis or metastatic bone disease. Pending bone scan. Vitamin D 13.9. Given 50,000 units of D3. Patient will have to follow-up with PCP, rheumatology and oncology after the surgery Orthopedic surgery consult, possible operation on Friday pending bone scan. (2) Hypertension Qualifiers: Hypertension type: essential hypertension Qualified Code(s): I10 - Essential (primary) hypertension Is this a current diagnosis for this admission?: Yes Plan: Euvolemic. Normotensive. Resume home meds. Adjust meds as needed. PRN IV hydralazine and metoprolol. (3) Obesity Qualifiers: Obesity type: due to excess calories Body mass index: BMI 35.0-35.9 Is this a current diagnosis for this admission?: Yes Plan: BMI 35.5. Status post gastric bypass. Diet and lifestyle modification recommended. (4) Hypothyroidism Qualifiers: Hypothyroidism type: acquired Qualified Code(s): E03.9 - Hypothyroidism, unspecified Is this a current diagnosis for this admission?: Yes Plan: Resume home meds. (5) Cervical cancer Is this a current diagnosis for this admission?: Yes Plan: Status post chemoradiation. Followed by Dr. Douglas. Outpatient PCP and oncology follow-up. (6) Hyperlipidemia Is this a current diagnosis for this admission?: Yes Plan: Resume home meds. (7) Vitamin D deficiency Is this a current diagnosis for this admission?: Yes Plan: Likely due to p.o. intake or due to low absorption given history of gastric bypass. Given 50,000. Patient encouraged to continue vitamin D as outpatient and follow-up with PCP. - Time Time Spent with patient: 25-34 minutes Medications reviewed and adjusted accordingly: Yes Anticipated Discharge Disposition: Senior Living Facility Anticipated Discharge Timeframe: within 72 hours
[2020-07-30] MEDS ORDERED: DEXTROSE 40% GEL 15 GM TUBE PO PRN ×2 (11:43)
[2020-07-30] MEDS ORDERED: GLUCAGON,HUMAN RECOMB 1 MG INJ SUBCUT PRN (11:43)
[2020-07-30] MEDS ORDERED: DEXTROSE 50%-WATER 25 GM/50 ML DISP.SYRIN IV PRN ×2 (11:43)
[2020-07-31] MEDS: MORPHINE SULFATE 10 MG/ML INJ IV PRN ×3 (03:01→19:35)
[2020-07-31] MEDS: NORMAL SALINE 1000 ML 1,000 ML IV PRN ×2 (05:51→23:09)
[2020-07-31] MEDS: LEVOTHYROXINE SODIUM 0.1 MG TABLET PO SCH (06:11)
[2020-07-31] MEDS: CEPHALEXIN 500 MG CAPSULE PO SCH ×3 (06:11→23:09)
[2020-07-31] MEDS: HEPARIN SOD (PORCINE) 5,000 UNIT/ML 1 ML VIAL SUBCUT SCH ×3 (06:11→23:09)
[2020-07-31 06:32] LABS: INTERNATIONAL RATION (INR) 1.13; PROTHROMBIN TIME 14.7 SEC (11.4-15.4)
[2020-07-31 06:48] LABS: ALBUMIN 2.6 g/dL (3.5-5.0); ALKALINE PHOSPHATASE 66 U/L (38-126); ASPARTATE AMINO TRANSFERASE 16 U/L (14-36); BILIRUBIN,DIRECT 0.3 mg/dL (0.0-0.4); BLOOD UREA NITROGEN 10 mg/dL (7-20); CARBON DIOXIDE 31 mmol/L (22-30); CHLORIDE 98 mmol/L (98-107); GLUCOSE 101 mg/dL (75-110); POTASSIUM 3.7 mmol/L (3.6-5.0); TOTAL PROTEIN 4.8 g/dL (6.3-8.2)
[2020-07-31 06:57] LABS: ANION GAP 4 (5-19)
[2020-07-31 08:14] LABS: ABSOLUTE EOSINOPHILS # (AUTO) 0.1 10^3/uL (0.0-0.6); ABSOLUTE LYMPHOCYTES (AUTO) 0.2 10^3/uL (0.5-4.7); ABSOLUTE MONOCYTES (AUTO) 0.3 10^3/uL (0.1-1.4); ABSOLUTE NEUT (AUTO) 2.1 10^3/uL (1.7-8.2); BASOPHILS % (AUTO) 0.6 % (0-2); EOSINOPHILS % (AUTO) 4.6 % (0-6); HEMATOCRIT 23.4 % (36.0-47.0); HEMOGLOBIN 8.3 g/dL (12.0-15.5); LYMPHOCYTES % (AUTO) 8.6 % (13-45); MEAN CORPUSCULAR HEMOGLOBIN 32.5 pg (27.0-33.4); MEAN CORPUSCULAR HGB CONC 35.3 g/dL (32.0-36.0); MEAN CORPUSCULAR VOLUME 92 fl (80-97); MONOCYTES % (AUTO) 10.6 % (3-13); RED BLOOD COUNT 2.54 10^6/uL (3.72-5.28); RED CELL DISTRIBUTION WIDTH 14.4 % (11.5-14.0); SEGMENTED NEUTROPHILS % (AUTO) 75.6 % (42-78); TOTAL CELLS COUNTED % (AUTO) 100 %; WHITE BLOOD COUNT 2.7 10^3/uL (4.0-10.5)
[2020-07-31 08:54] LABS: PLATELET COUNT 92 10^3/uL (150-450)
[2020-07-31] MEDS: CALCIUM CARBONATE 600 MG TABLET PO SCH ×2 (09:09→19:34)
[2020-07-31] MEDS: FAMOTIDINE 20 MG TABLET PO SCH ×2 (09:09→23:09)
--- NOTE | 2020-07-31 12:08 | PDOC PROGRESS REPORT ---
Subjective Progress Note for:: 07/31/20 Subjective:: WES RAINEY is a 74 year old female past medical history of hyperlipidemia, hypertension, hypothyroidism, arthritis, gastric bypass, cervical cancer status post chemoradiation, presenting to ED after mechanical fall. Patient is stating that she was getting up to go to the bathroom and her foot got tangled in her comforter and she fell to the ground, she denies sustaining any head trauma or passing out, she denies any lightheaded or palpitation or headache before the fall, patient denies any headache, lightheadedness, focal neurological symptoms, fever, chills, nausea, vomiting, diarrhea, constipation or any urinary symptoms. In ED of right hip x-ray showed proximal intertrochanteric fracture with significant varus angulation on foreshortening of the site of fracture. Orthopedic surgery was consulted and patient is planned to have surgery, medicine was conated for admision for medical management. 07/29/2020. No acute events overnight. Patient's surgery has been delayed until Friday pending bone scan, comfortably resting in bed no apparent distress stating that she only hurts if she moves her leg, otherwise denies any fever, chills, nausea, vomiting, diarrhea, constipation or any urinary symptoms. 07/30/2020. No acute events overnight. Patient comfortably resting in no apparent distress, stating that her pain is well controlled with IV morphine, denies any fever, chills, nausea, vomiting, diarrhea, constipation or any urinary symptoms. Patient is pending surgery tomorrow if bone scan is done. 07/31/2020. No acute events overnight. Denies any fever, chills, nausea, vomiting, diarrhea, constipation or any urinary symptoms. Right hip pain is controlled with IV morphine, patient is scheduled for surgery post bone scan. Reason For Visit: HIP FRACTURE Physical Exam Vital Signs: Temp Pulse Resp BP Pulse Ox 98.0 F 88 12 125/57 L 95 07/31/20 08:23 07/31/20 08:23 07/31/20 08:23 07/31/20 08:23 07/31/20 08:23 Intake & Output 07/30/20 07/31/20 08/01/20 06:59 06:59 06:59 Intake Total 2985 3215 Output Total 1235 2825 Balance 1750 390 Weight 98.6 kg 96 kg General appearance: PRESENT: no acute distress, obese, well-developed, well- nourished Head exam: PRESENT: atraumatic, normocephalic Respiratory exam: PRESENT: clear to auscultation cullen. ABSENT: rales, rhonchi, wheezes Cardiovascular exam: PRESENT: RRR. ABSENT: diastolic murmur, rubs, systolic murmur GI/Abdominal exam: PRESENT: normal bowel sounds, soft. ABSENT: distended, guarding, mass, organolmegaly, rebound, tenderness Extremities exam: PRESENT: full ROM, other - Right leg flexed and internally rotated. Neurovascular intact. Patient does not want to move right head fearing pain.. ABSENT: calf tenderness, clubbing, pedal edema Neurological exam: PRESENT: alert, awake, oriented to person, oriented to place, oriented to time, oriented to situation, CN II-XII grossly intact. ABSENT: motor sensory deficit Results Laboratory Results: 07/31/20 07:57 07/31/20 06:08 07/31/20 07/31/20 07/31/20 06:08 06:08 07:57 WBC Cancelled 2.7 L RBC Cancelled 2.54 L Hgb Cancelled 8.3 L Hct Cancelled 23.4 L MCV Cancelled 92 MCH Cancelled 32.5 MCHC Cancelled 35.3 RDW Cancelled 14.4 H Plt Count Cancelled 92 L Seg Neutrophils % Cancelled 75.6 Sodium 133.4 L Potassium 3.7 Chloride 98 Carbon Dioxide 31 H Anion Gap 4 L BUN 10 Creatinine 0.49 L Est GFR ( Amer) > 60 Glucose 101 Calcium 8.0 L Total Bilirubin 1.0 AST 16 Alkaline Phosphatase 66 Total Protein 4.8 L Albumin 2.6 L 07/28/20 12:13 Espinoza Catheter Urine Culture - Final NO GROWTH 2 DAYS 07/28/20 07/28/20 11:18 11:18 Creatine Kinase 106 Troponin I < 0.012 Impressions: Chest X-Ray 07/28/20 10:34 IMPRESSION: NO ACUTE RADIOGRAPHIC FINDING IN THE CHEST. Hip/Pelvis X-Ray 07/28/20 10:34 IMPRESSION: Acute right proximal femur intertrochanteric fracture with significant varus angulation and foreshortening at the fracture site Assessment and Plan - Diagnosis (1) Displaced fracture of right femoral neck Is this a current diagnosis for this admission?: Yes Plan: Due to mechanical fall. Given history of gastric bypass and history of malignancy patient may have underlying osteoporosis or metastatic bone disease. Pending bone scan. Vitamin D 13.9. Given 50,000 units of D3. Patient will have to follow-up with PCP, rheumatology and oncology after the surgery Orthopedic surgery consult, possible operation on Friday pending bone scan. (2) Hypertension Qualifiers: Hypertension type: essential hypertension Qualified Code(s): I10 - Essential (primary) hypertension Is this a current diagnosis for this admission?: Yes Plan: Euvolemic. Normotensive. Resume home meds. Adjust meds as needed. PRN IV hydralazine and metoprolol. (3) Obesity Qualifiers: Obesity type: due to excess calories Body mass index: BMI 35.0-35.9 Is this a current diagnosis for this admission?: Yes Plan: BMI 35.5. Status post gastric bypass. Diet and lifestyle modification recommended. (4) Hypothyroidism Qualifiers: Hypothyroidism type: acquired Qualified Code(s): E03.9 - Hypothyroidism, unspecified Is this a current diagnosis for this admission?: Yes Plan: Resume home meds. (5) Cervical cancer Is this a current diagnosis for this admission?: Yes Plan: Status post chemoradiation. Followed by Dr. Douglas. Outpatient PCP and oncology follow-up. (6) Hyperlipidemia Is this a current diagnosis for this admission?: Yes Plan: Resume home meds. (7) Vitamin D deficiency Is this a current diagnosis for this admission?: Yes Plan: Likely due to p.o. intake or due to low absorption given history of gastric bypass. Given 50,000. Patient encouraged to continue vitamin D as outpatient and follow-up with PCP. - Time Time Spent with patient: 25-34 minutes Medications reviewed and adjusted accordingly: Yes Anticipated Discharge Disposition: Home with Home Health Anticipated Discharge Timeframe: within 72 hours
[2020-07-31] MEDS: DULOXETINE HCL 30 MG CAPSULE.DR PO SCH (12:16)
[2020-07-31] MEDS: MULTIVITAMIN TABLET PO SCH (12:17)
--- NOTE | 2020-07-31 12:45 | RADIOLOGY REPORT (SQ) ---
EXAM DESCRIPTION: NM WHOLE BODY BONE SCAN IMAGES COMPLETED DATE/TIME: 07/31/2020 12:19 pm REASON FOR STUDY: Cervical CA, Pre-operative evaluation COMPARISON: Hip x-ray 07/28/2020. RADIONUCLIDE AND DOSE: 20.3 millicuries Tc99m MDP. The route of agent administration: Intravenous. ADDITIONAL DRUGS AND DOSES: None. TECHNIQUE: Routine delayed images at 3 hour post radionuclide injection acquired of the bony skeleto n including anterior and posterior whole-body projections and additional focused images as needed. LIMITATIONS: None. FINDINGS: BONES: Increased uptake associated with known right hip fracture. Increased uptake approx imally L2 and L4 vertebral bodies. This is probably degenerative or due to compression fractures. I ncreased uptake shoulders and right knee consistent with degenerative change. Left knee arthroplasty . KIDNEYS: Symmetric excretion without obstruction. OTHER: No other significant finding. IMPRESSION: Nonspecific uptake in the lumbar spine. Appearance not typical for metastatic disease. Uptake associated with known right hip fracture. RECOMMENDATION: Consider x-rays of the lumbar spine. COMMENT: Quality measure 147: Current bone scan is compared with any available plain radiographs, p rior bone scans, and CT/MRI. TECHNICAL DOCUMENTATION: JOB ID: [id number] 2010 [employer]- All Rights Reserved Reading location - IP/workstation name: [email or web address]
[2020-07-31] MEDS ORDERED: KETOROLAC TROMETHAMINE INJ/PF 30 MG/1 ML SDV ONE (13:47)
[2020-07-31] MEDS ORDERED: BUPIVACAINE HCL 0.25 % INJ/PF (2.5 MG/1 ML) 30 ML VIAL ONE (13:47)
[2020-07-31] MEDS ORDERED: VANCOMYCIN HCL INJ 1000 MG VIAL ONE (13:47)
[2020-07-31] MEDS ORDERED: ONDANSETRON HCL INJ/PF 4 MG/2 ML SDV IV PRN (14:00)
[2020-07-31] MEDS ORDERED: PROMETHAZINE HCL INJ 25 MG/1 ML VIAL IV PRN ×2 (14:00→16:18)
[2020-07-31] MEDS ORDERED: KETAMINE HCL INJ 500 MG/10 ML VIAL ONE (14:08)
[2020-07-31] MEDS ORDERED: MIDAZOLAM 2 MG/2 ML INJ ONE (14:09)
[2020-07-31] MEDS ORDERED: ONDANSETRON HCL INJ/PF 4 MG/2 ML SDV ONE (14:09)
[2020-07-31] MEDS ORDERED: EPHEDRINE SULFATE INJ 50 MG/1 ML AMPULE ONE (14:09)
[2020-07-31] MEDS ORDERED: FENTANYL CITRATE INJ/PF 100 MCG/2 ML AMPUL ONE ×2 (14:09→18:28)
[2020-07-31] MEDS ORDERED: PROPOFOL INJ 200 MG/20 ML VIAL IV ONE ×2 (14:09→18:16)
[2020-07-31] MEDS ORDERED: TRANEXAMIC ACID INJ/PF 1,000 MG/10 ML SDV ONE (14:10)
--- NOTE | 2020-07-31 15:02 | PDOC PROGRESS REPORT ---
Subjective Progress Note for:: 07/31/20 Subjective:: Patient doing well. No acute events overnight. Pain well controlled on current pain medication. Reason For Visit: HIP FRACTURE Physical Exam Vital Signs: Temp Pulse Resp BP Pulse Ox 98.1 F 87 12 141/51 H 96 07/31/20 12:06 07/31/20 12:06 07/31/20 12:06 07/31/20 12:06 07/31/20 12:06 Intake & Output 07/30/20 07/31/20 08/01/20 06:59 06:59 06:59 Intake Total 2985 3215 Output Total 1235 2825 Balance 1750 390 Weight 98.6 kg 96 kg Physical Exam: No acute distress, alert and orient x3 Right lower extremity -Pulses 2+ distally -Compartments soft -Sensation grossly intact to L3-4-5 S1 -Motor grossly intact to EHL TA gastroc and quad Shortened externally rotated Results Laboratory Results: 07/31/20 07:57 07/31/20 06:08 07/31/20 07/31/20 07/31/20 06:08 06:08 07:57 WBC Cancelled 2.7 L RBC Cancelled 2.54 L Hgb Cancelled 8.3 L Hct Cancelled 23.4 L MCV Cancelled 92 MCH Cancelled 32.5 MCHC Cancelled 35.3 RDW Cancelled 14.4 H Plt Count Cancelled 92 L Seg Neutrophils % Cancelled 75.6 Sodium 133.4 L Potassium 3.7 Chloride 98 Carbon Dioxide 31 H Anion Gap 4 L BUN 10 Creatinine 0.49 L Est GFR ( Amer) > 60 Glucose 101 Calcium 8.0 L Total Bilirubin 1.0 AST 16 Alkaline Phosphatase 66 Total Protein 4.8 L Albumin 2.6 L 07/28/20 07/28/20 11:18 11:18 Creatine Kinase 106 Troponin I < 0.012 Impressions: Chest X-Ray 07/28/20 10:34 IMPRESSION: NO ACUTE RADIOGRAPHIC FINDING IN THE CHEST. Hip/Pelvis X-Ray 07/28/20 10:34 IMPRESSION: Acute right proximal femur intertrochanteric fracture with significant varus angulation and foreshortening at the fracture site Body Scan Nuclear Medicine 07/31/20 00:00 IMPRESSION: Nonspecific uptake in the lumbar spine. Appearance not typical for metastatic disease. Uptake associated with known right hip fracture. Assessment & Plan - Diagnosis (1) Displaced fracture of right femoral neck Is this a current diagnosis for this admission?: Yes Plan: Plan for operative intervention today. Reviewed bone scan that reveals no metastatic disease. Will still send for path Patient will be made weightbearing as tolerated after surgery. Suggest aspirin for DVT prophylaxis, 325 mg once daily for 6 weeks Posterior hip precautions. (2) Closed right hip fracture Qualifiers: Encounter type: initial encounter Qualified Code(s): S72.001A - Fracture of unspecified part of neck of right femur, initial encounter for closed fracture Is this a current diagnosis for this admission?: Yes - Time Time Spent with patient: Less than 15 minutes
[2020-07-31] MEDS ORDERED: CEFAZOLIN INJ 1 GM VIAL ONE (15:08)
[2020-07-31] MEDS ORDERED: FENTANYL CITRATE INJ/PF 100 MCG/2 ML AMPUL IV PRN ×3 (16:18)
[2020-07-31] MEDS ORDERED: DIPHENHYDRAMINE HCL 50 MG/ML VIAL IV PRN (16:18)
[2020-07-31] MEDS ORDERED: MORPHINE SULFATE 10 MG/ML INJ IV PRN (16:18)
[2020-07-31] MEDS: CYANOCOBALAMIN (VITAMIN B-12) INJ 1000 MCG/1 ML VIAL IM SCH (18:02)
--- NOTE | 2020-07-31 18:39 | Operative Report ---
Operative Report DATE OF SURGERY: 07/31/20 PREOPERATIVE DIAGNOSIS: Right femoral neck fracture POSTOPERATIVE DIAGNOSIS: Right femoral neck fracture OPERATION: Right hip hemiarthroplasty SURGEON: HARISH SANTIAGO JR COMPLICATIONS: None ESTIMATED BLOOD LOSS: 250 cc PROCEDURE: Patient was brought to the operating suite. They are provided with spinal anesthesia on their stretcher and then transferred to the operating table. They were then placed in a lateral decubitus position on a pegboard. After adequate anesthesia the right lower extremity was prepped and draped in sterile sterile fashion. There were given 2 g of Ancef preoperatively. A timeout was performed followed by marking out the incision and making posterior approach incision. Bovie cautery was utilized to pass through the adipose tissue to reach the fascia. After this the fascia was exposed and then reflected with Bovie cautery. A Charnley retractor was placed in the wound. The interval between the piriformis and the abductor's was found and a Hohmann was placed in between the interval over the top of the acetabulum. The piriformis was further delineated. At this time we also were able to appreciate a trochanteric fracture with the greater trochanter completely fractured and displaced between the abductor's and the vastus lateralis. The piriformis was attached to this piece and preserved. The Hohmann was replaced underneath the trochanteric piece and we were better able to visualize the capsule. This was then incised with cautery. A large segment of femoral neck remained on the femoral head. The femoral neck was substantially displaced with a the large fragment anterior to our exposure. This required diligent and careful piecemeal resection in order to extract. We were able to eventually manipulate the neck so that we could apply a corkscrew which then allowed for removal of the femoral head. This and all other bony fragments found were placed in a specimen cup and sent to pathology given the patient's history of cervical cancer with pelvic radiation. The acetabulum was then sized and found to have good stability with a 44 head. Upon further appreciation of the fracture the lesser trochanter was also involved and displaced as well as the calcar. This left very little proximal femur to allow for appropriate use of a femoral elevator. A wider version was retrieved and used in order to adequately expose the femur to allow for reaming and broaching. We began with reaming and then subsequently broached up until we reached a 16 broach. This produced good stability within the femoral canal. A standard neck length unipolar trial was placed. Upon reduction this produced excellent leg length and stability throughout range of motion and without impingement. The hip was then dislocated, the position of the femoral version as well as the height of the implant was marked and the implants were then removed. After this the wound was copiously irrigated with pulsatile dilute Betadine solution. A cement restrictor was placed down the canal followed by introduction of tobramycin prophylactic antibiotic cement. This was appropriately compressed followed by the insertion of a size 16 Synergy stem to the prior to determine the level of depth and version. Excess cement was removed around the collar and we waited for cement to harden. The 44 x 0 real head was impacted onto a clean dry trunnion and then the hip was reduced. Again this produced near equal leg length and excellent stability throughout range of motion. The wound was then copiously irrigated again with dilute Betadine solution. Drill holes were made through the greater trochanter piece as well as the proximal femur and a #5 FiberWire was passed in [id number] fashion through the 4 drill holes. This was done twice followed by tightly suturing the trochanteric piece back to the femur. Subsequent to this a #2 PDS barbed suture was then used to suture the external rotators and a portion of the capsule back to the fractured piece as well as the intact proximal femur, which did require a few drill holes to be placed. The suture was continued proximal and distal and then the fascia was brought back and the suture was then used to run the fascia as well. After this local anesthetic was then applied. #2 Quill was used again in the adipose tissue followed by a 2-0 running barbed Monocryl in the skin, finally carrying this suture in a subcuticular layer. A sterile silver dressing was then placed. The patient was then awakened from anesthesia and transferred to the PACU in stable condition. Due to the patient's BMI of 36 as well as difficulties outlined above including the fracture pattern and difficulty with both manipulation and sizing, we are billing a 22 modifier for increased time and effort.
--- NOTE | 2020-07-31 18:56 | RADIOLOGY REPORT (SQ) ---
EXAM DESCRIPTION: HIP RIGHT AP/LATERAL IMAGES COMPLETED DATE/TIME: 07/31/2020 6:48 pm REASON FOR STUDY: post op COMPARISON: None. NUMBER OF VIEWS: Two view(s). TECHNIQUE: Digital radiographic images of the right hip post-procedure. LIMITATIONS: None. FINDINGS: BONES: No worrisome or unexpected findings post-procedure. DEVICE: Total hip replacement. Components of the device in appropriate location. SOFT TISSUES: No worrisome findings. Expected postoperative soft tissue changes. IMPRESSION: SATISFACTORY POSTOPERATIVE RIGHT HIP. TECHNICAL DOCUMENTATION: JOB ID: [id number] 2010 [employer]- All Rights Reserved Reading location - IP/workstation name: [email or web address]
[2020-07-31] MEDS ORDERED: CEFAZOLIN 1 GM/D5W RTU 1 GM/50 ML RTUPB IV ONE (23:58)
[2020-07-31] MEDS ORDERED: CEFAZOLIN 2 GM/D5W RTU 2 GM/50 ML RTUPB IV SCH (23:59)
[2020-08-01] MEDS: TEMAZEPAM 7.5 MG CAPSULE PO PRN ×2 (00:06→22:34)
[2020-08-01] MEDS: MORPHINE SULFATE 10 MG/ML INJ IV PRN ×5 (00:07→19:24)
[2020-08-01] MEDS: CEFAZOLIN SODIUM 2 GM in DEXTROSE 5%-WATER 100 ML IV SCH ×2 (00:10→09:06)
[2020-08-01] MEDS: CEPHALEXIN 500 MG CAPSULE PO SCH ×3 (05:34→22:34)
[2020-08-01] MEDS: LEVOTHYROXINE SODIUM 0.1 MG TABLET PO SCH (05:34)
[2020-08-01] MEDS: HEPARIN SOD (PORCINE) 5,000 UNIT/ML 1 ML VIAL SUBCUT SCH ×3 (05:35→22:35)
[2020-08-01 06:39] LABS: BLOOD UREA NITROGEN 12 mg/dL (7-20); CALCIUM 7.5 mg/dL (8.4-10.2); GLUCOSE 116 mg/dL (75-110); POTASSIUM 3.9 mmol/L (3.6-5.0)
[2020-08-01 06:44] LABS: ANION GAP 5 (5-19); CARBON DIOXIDE 25 mmol/L (22-30); CHLORIDE 102 mmol/L (98-107)
--- NOTE | 2020-08-01 07:33 | PDOC PROGRESS REPORT ---
Subjective Subjective:: Patient doing well this morning. No acute events overnight. Pain well controlled. Reason For Visit: HIP FRACTURE Physical Exam Vital Signs: Temp Pulse Resp BP Pulse Ox 98.6 F 95 18 130/62 H 99 08/01/20 01:00 08/01/20 01:00 08/01/20 01:00 08/01/20 01:00 08/01/20 01:00 Intake & Output 07/31/20 08/01/20 08/02/20 06:59 06:59 06:59 Intake Total 3215 3980 Output Total 2825 1935 Balance 390 2045 Weight 96 kg 98.7 kg Physical Exam: General appearance: PRESENT: no acute distress, cooperative, morbidly obese Head exam: PRESENT: atraumatic, normocephalicpoor dentition Eye exam: PRESENT: EOMI Ear exam: PRESENT: normal external ear exam Mouth exam: PRESENT: neck supple Neck exam: ABSENT: tracheal deviation Respiratory exam: PRESENT: symmetrical, unlabored. ABSENT: accessory muscle use, wheezes Pulses: PRESENT: normal radial pulses, normal dorsalis pedis pulse Vascular exam: PRESENT: normal capillary refill GI/Abdominal exam: ABSENT: distended, firm Extremities exam: PRESENT: full ROM of bilateral shoulders, elbows wrists, knees, hips and ankles without pain Musculoskeletal exam: PRESENT: full ROM, normal inspection of all 4 extremities aside from that noted below. Neurological exam: PRESENT: alert, awake, oriented to person, oriented to place, oriented to time Psychiatric exam: PRESENT: appropriate affect. ABSENT: agitated Focused psych exam: ABSENT: catatonic Skin exam: PRESENT: intact. ABSENT: dry All as above aside from that noted in the HPI and the following: Right lower extremity -Pulses 2+ distally -Compartments soft -Sensation grossly intact to L3-4-5 S1 -Motor grossly intact to EHL TA gastroc and quad Incision clean dry and intact Results Laboratory Results: 08/01/20 05:45 08/01/20 05:45 07/31/20 08/01/20 08/01/20 07:57 05:45 05:45 WBC 2.7 L Cancelled RBC 2.54 L Cancelled Hgb 8.3 L Cancelled Hct 23.4 L Cancelled MCV 92 Cancelled MCH 32.5 Cancelled MCHC 35.3 Cancelled RDW 14.4 H Cancelled Plt Count 92 L Cancelled Seg Neutrophils % 75.6 Cancelled Sodium 131.9 L Potassium 3.9 Chloride 102 Carbon Dioxide 25 Anion Gap 5 BUN 12 Creatinine 0.50 L Est GFR ( Amer) > 60 Glucose 116 H Calcium 7.5 L Magnesium 1.4 L 07/28/20 07/28/20 11:18 11:18 Creatine Kinase 106 Troponin I < 0.012 Impressions: Chest X-Ray 07/28/20 10:34 IMPRESSION: NO ACUTE RADIOGRAPHIC FINDING IN THE CHEST. Body Scan Nuclear Medicine 07/31/20 00:00 IMPRESSION: Nonspecific uptake in the lumbar spine. Appearance not typical for metastatic disease. Uptake associated with known right hip fracture. Hip/Pelvis X-Ray 07/31/20 00:00 IMPRESSION: SATISFACTORY POSTOPERATIVE RIGHT HIP. Assessment & Plan - Diagnosis (1) Displaced fracture of right femoral neck Is this a current diagnosis for this admission?: Yes Plan: - 2 doses of Ancef postoperatively q 8 hours to complete 24 hours perioperatively -Weightbearing as tolerated, no precautions, encourage out of bed DEREJE for ADL training - PT/OT -aspirin 325 daily for DVT prophylaxis for 6 weeks -multimodal pain management to avoid excessive narcotics, including gabapentin, tramadol, Toradol, acetaminophen. -Dressing should not be removed for 7 to 10 days until seen in the office -May shower with the dressing intact, if it starts to come off she should not get the incision wet. -Follow-up with Dr. Brian Martinez, orthopedic surgeon at [facility] for surgery, in 10 days. Call for an appointment. . [address], [place] [address] (2) Closed right hip fracture Qualifiers: Encounter type: initial encounter Qualified Code(s): S72.001A - Fracture of unspecified part of neck of right femur, initial encounter for closed fracture Is this a current diagnosis for this admission?: Yes - Time Time Spent with patient: Less than 15 minutes
[2020-08-01] MEDS: FLUOXETINE HCL 20 MG CAPSULE PO SCH (08:59)
[2020-08-01] MEDS: CALCIUM CARBONATE 600 MG TABLET PO SCH ×2 (08:59→17:27)
[2020-08-01] MEDS: MULTIVITAMIN TABLET PO SCH (09:00)
[2020-08-01] MEDS: ACETAMINOPHEN 325 MG TABLET PO PRN ×3 (09:00→17:25)
[2020-08-01] MEDS: DULOXETINE HCL 30 MG CAPSULE.DR PO SCH ×3 (09:00→22:34)
[2020-08-01] MEDS: FAMOTIDINE 20 MG TABLET PO SCH ×2 (09:00→22:34)
[2020-08-01] MEDS: CYANOCOBALAMIN (VITAMIN B-12) INJ 1000 MCG/1 ML VIAL IM SCH (09:05)
[2020-08-01 09:25] LABS: ABSOLUTE EOSINOPHILS # (AUTO) 0.1 10^3/uL (0.0-0.6); ABSOLUTE LYMPHOCYTES (AUTO) 0.2 10^3/uL (0.5-4.7); ABSOLUTE MONOCYTES (AUTO) 0.3 10^3/uL (0.1-1.4); ABSOLUTE NEUT (AUTO) 2.5 10^3/uL (1.7-8.2); BASOPHILS % (AUTO) 0.3 % (0-2); EOSINOPHILS % (AUTO) 2.9 % (0-6); HEMATOCRIT 19.9 % (36.0-47.0); LYMPHOCYTES % (AUTO) 5.5 % (13-45); MEAN CORPUSCULAR HEMOGLOBIN 32.4 pg (27.0-33.4); MEAN CORPUSCULAR HGB CONC 35.2 g/dL (32.0-36.0); MEAN CORPUSCULAR VOLUME 92 fl (80-97); MONOCYTES % (AUTO) 8.2 % (3-13); RED BLOOD COUNT 2.16 10^6/uL (3.72-5.28); RED CELL DISTRIBUTION WIDTH 14.2 % (11.5-14.0); SEGMENTED NEUTROPHILS % (AUTO) 83.1 % (42-78); TOTAL CELLS COUNTED % (AUTO) 100 %
[2020-08-01 10:04] LABS: PLATELET COUNT 88 10^3/uL (150-450)
[2020-08-01] MEDS: OXYCODONE-ACETAMINOPHEN 5-325 MG TABLET PO PRN ×2 (14:40→20:43)
--- NOTE | 2020-08-01 15:55 | PDOC PROGRESS REPORT ---
Subjective Progress Note for:: 08/01/20 Subjective:: WES RAINEY is a 74 year old female past medical history of hyperlipidemia, hypertension, hypothyroidism, arthritis, gastric bypass, cervical cancer status post chemoradiation, presenting to ED after mechanical fall. Patient is stating that she was getting up to go to the bathroom and her foot got tangled in her comforter and she fell to the ground, she denies sustaining any head trauma or passing out, she denies any lightheaded or palpitation or headache before the fall, patient denies any headache, lightheadedness, focal neurological symptoms, fever, chills, nausea, vomiting, diarrhea, constipation or any urinary symptoms. In ED of right hip x-ray showed proximal intertrochanteric fracture with significant varus angulation on foreshortening of the site of fracture. Orthopedic surgery was consulted and patient is planned to have surgery, medicine was conated for admision for medical management. 07/29/2020. No acute events overnight. Patient's surgery has been delayed until Friday pending bone scan, comfortably resting in bed no apparent distress stating that she only hurts if she moves her leg, otherwise denies any fever, chills, nausea, vomiting, diarrhea, constipation or any urinary symptoms. 07/30/2020. No acute events overnight. Patient comfortably resting in no apparent distress, stating that her pain is well controlled with IV morphine, denies any fever, chills, nausea, vomiting, diarrhea, constipation or any urinary symptoms. Patient is pending surgery tomorrow if bone scan is done. 07/31/2020. No acute events overnight. Denies any fever, chills, nausea, vomiting, diarrhea, constipation or any urinary symptoms. Right hip pain is controlled with IV morphine, patient is scheduled for surgery post bone scan. 08/01/2020. No acute events overnight. Patient is status post right hip hemiarthroplasty by orthopedic surgery, patient pain is well controlled, able to move her lower extremities somewhat, denies any fever, chills, nausea, vomiting, diarrhea or symptoms. Complaining of constipation. This morning hemoglobin was noted to have dropped from 8.3-7.0 with no obvious sign of bleeding, patient lost about 250 cc of blood during surgery. Patient receiving 2 PRBC. Reason For Visit: HIP FRACTURE Physical Exam Vital Signs: Temp Pulse Resp BP Pulse Ox 98.7 F 96 22 H 124/43 L 98 08/01/20 15:32 08/01/20 15:32 08/01/20 15:32 08/01/20 15:32 08/01/20 15:32 Intake & Output 07/31/20 08/01/20 08/02/20 06:59 06:59 06:59 Intake Total 3215 3980 360 Output Total 2825 1935 600 Balance 390 2045 -240 Weight 96 kg 98.7 kg General appearance: PRESENT: no acute distress, obese, well-developed, well- nourished Head exam: PRESENT: atraumatic, normocephalic Neck exam: ABSENT: carotid bruit, JVD, lymphadenopathy, thyromegaly Respiratory exam: PRESENT: clear to auscultation cullen. ABSENT: rales, rhonchi, wheezes Cardiovascular exam: PRESENT: RRR. ABSENT: diastolic murmur, rubs, systolic murmur GI/Abdominal exam: PRESENT: normal bowel sounds, soft. ABSENT: distended, guarding, mass, organolmegaly, rebound, tenderness Extremities exam: PRESENT: full ROM, other - Left hip surgical wound looks clean, no sign of discharge, no erythema, no tenderness.. ABSENT: calf tenderness, clubbing, pedal edema Neurological exam: PRESENT: alert, awake, oriented to person, oriented to place, oriented to time, oriented to situation, CN II-XII grossly intact. ABSENT: motor sensory deficit Results Laboratory Results: 08/01/20 08:48 08/01/20 05:45 08/01/20 08/01/20 08/01/20 05:45 05:45 08:48 WBC Cancelled 3.0 L RBC Cancelled 2.16 L Hgb Cancelled 7.0 L Hct Cancelled 19.9 L MCV Cancelled 92 MCH Cancelled 32.4 MCHC Cancelled 35.2 RDW Cancelled 14.2 H Plt Count Cancelled 88 L Seg Neutrophils % Cancelled 83.1 H Sodium 131.9 L Potassium 3.9 Chloride 102 Carbon Dioxide 25 Anion Gap 5 BUN 12 Creatinine 0.50 L Est GFR ( Amer) > 60 Glucose 116 H Calcium 7.5 L Magnesium 1.4 L Blood Type Antibody Screen 08/01/20 08:48 WBC RBC Hgb Hct MCV MCH MCHC RDW Plt Count Seg Neutrophils % Sodium Potassium Chloride Carbon Dioxide Anion Gap BUN Creatinine Est GFR ( Amer) Glucose Calcium Magnesium Blood Type O POSITIVE Antibody Screen NEGATIVE 07/28/20 07/28/20 11:18 11:18 Creatine Kinase 106 Troponin I < 0.012 Impressions: Chest X-Ray 07/28/20 10:34 IMPRESSION: NO ACUTE RADIOGRAPHIC FINDING IN THE CHEST. Body Scan Nuclear Medicine 07/31/20 00:00 IMPRESSION: Nonspecific uptake in the lumbar spine. Appearance not typical for metastatic disease. Uptake associated with known right hip fracture. Hip/Pelvis X-Ray 07/31/20 00:00 IMPRESSION: SATISFACTORY POSTOPERATIVE RIGHT HIP. Assessment and Plan - Diagnosis (1) Displaced fracture of right femoral neck Is this a current diagnosis for this admission?: Yes Plan: Due to mechanical fall. Disposed right hemiarthroplasty. Given history of gastric bypass and history of malignancy patient may have underlying osteoporosis. Bone scan negative for any metastatic disease. Vitamin D 13.9. Given 50,000 units of D3. Patient will have to follow-up with PCP and rheumatology. Orthopedic surgery on board, recommendations noted. (2) Hypertension Qualifiers: Hypertension type: essential hypertension Qualified Code(s): I10 - Essential (primary) hypertension Is this a current diagnosis for this admission?: Yes Plan: Euvolemic. Normotensive. Resume home meds. Adjust meds as needed. PRN IV hydralazine and metoprolol. (3) Obesity Qualifiers: Obesity type: due to excess calories Body mass index: BMI 35.0-35.9 Is this a current diagnosis for this admission?: Yes Plan: BMI 35.5. Status post gastric bypass. Diet and lifestyle modification recommended. (4) Hypothyroidism Qualifiers: Hypothyroidism type: acquired Qualified Code(s): E03.9 - Hypothyroidism, unspecified Is this a current diagnosis for this admission?: Yes Plan: Resume home meds. (5) Cervical cancer Is this a current diagnosis for this admission?: Yes Plan: Status post chemoradiation. Followed by Dr. Douglas. Outpatient PCP and oncology follow-up. Bone scan negative for any metastasis. (6) Hyperlipidemia Is this a current diagnosis for this admission?: Yes Plan: Resume home meds. (7) Vitamin D deficiency Is this a current diagnosis for this admission?: Yes Plan: Likely due to p.o. intake or due to low absorption given history of gastric bypass. Given 50,000. Patient encouraged to continue vitamin D as outpatient and follow-up with PCP. - Time Time Spent with patient: 25-34 minutes Medications reviewed and adjusted accordingly: Yes Anticipated Discharge Disposition: Care Home Facility Anticipated Discharge Timeframe: within 48 hours
[2020-08-01] MEDS: POLYETHYLENE GLYCOL 3350 POWDER 17 GM/1 PACKET PO SCH (17:25)
[2020-08-01 23:21] LABS: ABSOLUTE EOSINOPHILS # (AUTO) 0.1 10^3/uL (0.0-0.6); ABSOLUTE LYMPHOCYTES (AUTO) 0.2 10^3/uL (0.5-4.7); ABSOLUTE MONOCYTES (AUTO) 0.3 10^3/uL (0.1-1.4); ABSOLUTE NEUT (AUTO) 2.9 10^3/uL (1.7-8.2); BASOPHILS % (AUTO) 0.4 % (0-2); EOSINOPHILS % (AUTO) 3.7 % (0-6); HEMOGLOBIN 8.9 g/dL (12.0-15.5); LYMPHOCYTES % (AUTO) 6.2 % (13-45); MEAN CORPUSCULAR HEMOGLOBIN 31.8 pg (27.0-33.4); MEAN CORPUSCULAR HGB CONC 35.5 g/dL (32.0-36.0); MEAN CORPUSCULAR VOLUME 89 fl (80-97); MONOCYTES % (AUTO) 8.8 % (3-13); RED CELL DISTRIBUTION WIDTH 14.9 % (11.5-14.0); SEGMENTED NEUTROPHILS % (AUTO) 80.9 % (42-78); TOTAL CELLS COUNTED % (AUTO) 100 %; WHITE BLOOD COUNT 3.6 10^3/uL (4.0-10.5)
[2020-08-01 23:42] LABS: PLATELET COUNT 79 10^3/uL (150-450)
[2020-08-02] MEDS: CEPHALEXIN 500 MG CAPSULE PO SCH ×3 (06:04→21:29)
[2020-08-02] MEDS: MORPHINE SULFATE 10 MG/ML INJ IV PRN ×4 (06:04→18:32)
[2020-08-02] MEDS: LEVOTHYROXINE SODIUM 0.1 MG TABLET PO SCH (06:04)
[2020-08-02] MEDS: HEPARIN SOD (PORCINE) 5,000 UNIT/ML 1 ML VIAL SUBCUT SCH ×3 (06:05→21:54)
[2020-08-02 08:36] LABS: HEMATOCRIT 24.6 % (36.0-47.0); HEMOGLOBIN 8.7 g/dL (12.0-15.5); MEAN CORPUSCULAR HEMOGLOBIN 31.8 pg (27.0-33.4); MEAN CORPUSCULAR HGB CONC 35.4 g/dL (32.0-36.0); MEAN CORPUSCULAR VOLUME 90 fl (80-97); RED BLOOD COUNT 2.74 10^6/uL (3.72-5.28); RED CELL DISTRIBUTION WIDTH 15.1 % (11.5-14.0); WHITE BLOOD COUNT 3.4 10^3/uL (4.0-10.5)
[2020-08-02 08:46] LABS: ANION GAP 7 (5-19); BLOOD UREA NITROGEN 12 mg/dL (7-20); CALCIUM 7.8 mg/dL (8.4-10.2); CARBON DIOXIDE 28 mmol/L (22-30); CHLORIDE 97 mmol/L (98-107); GLUCOSE 100 mg/dL (75-110); POTASSIUM 3.5 mmol/L (3.6-5.0)
[2020-08-02 09:03] LABS: PLATELET COUNT 81 10^3/uL (150-450)
[2020-08-02] MEDS: OXYCODONE-ACETAMINOPHEN 5-325 MG TABLET PO PRN ×2 (09:21→22:50)
[2020-08-02] MEDS: CYANOCOBALAMIN (VITAMIN B-12) INJ 1000 MCG/1 ML VIAL IM SCH (09:22)
[2020-08-02] MEDS: CALCIUM CARBONATE 600 MG TABLET PO SCH ×2 (09:22→18:32)
[2020-08-02] MEDS: MULTIVITAMIN TABLET PO SCH (09:22)
[2020-08-02] MEDS: POLYETHYLENE GLYCOL 3350 POWDER 17 GM/1 PACKET PO SCH (09:22)
[2020-08-02] MEDS: FAMOTIDINE 20 MG TABLET PO SCH ×2 (09:22→21:29)
[2020-08-02] MEDS: ACETAMINOPHEN 325 MG TABLET PO PRN (13:56)
--- NOTE | 2020-08-02 17:16 | PDOC PROGRESS REPORT ---
Subjective Progress Note for:: 08/02/20 Subjective:: No adverse events overnight. No new complaints. She got some packed red cells yesterday and says she is feeling better today. She was about to do some work with physical therapy whenever I came in to see her, to see if she is ready for rehab. Reason For Visit: HIP FRACTURE Physical Exam Vital Signs: Temp Pulse Resp BP Pulse Ox 98.5 F 92 12 114/58 L 97 08/02/20 16:39 08/02/20 16:39 08/02/20 16:39 08/02/20 16:39 08/02/20 16:39 Intake & Output 08/01/20 08/02/20 08/03/20 06:59 06:59 06:59 Intake Total 3980 1196 Output Total 1935 7655 Balance 2045 -1079 Weight 98.7 kg 103.1 kg General appearance: PRESENT: no acute distress, obese, well-developed, well- nourished Head exam: PRESENT: atraumatic, normocephalic Neck exam: ABSENT: carotid bruit, JVD, lymphadenopathy, thyromegaly Respiratory exam: PRESENT: clear to auscultation cullen. ABSENT: rales, rhonchi, wheezes Cardiovascular exam: PRESENT: RRR. ABSENT: diastolic murmur, rubs, systolic murmur GI/Abdominal exam: PRESENT: normal bowel sounds, soft. ABSENT: distended, guarding, mass, organolmegaly, rebound, tenderness Extremities exam: PRESENT: full ROM, other - Left hip surgical wound looks clean, no sign of discharge, no erythema, no tenderness.. ABSENT: calf tenderness, clubbing, pedal edema Neurological exam: PRESENT: alert, awake, oriented to person, oriented to place, oriented to time, oriented to situation, CN II-XII grossly intact. ABSENT: motor sensory deficit Results Laboratory Results: 08/02/20 06:40 08/02/20 06:40 08/01/20 08/02/20 08/02/20 22:42 06:40 06:40 WBC 3.6 L 3.4 L RBC 2.80 L 2.74 L Hgb 8.9 L 8.7 L Hct 25.0 L 24.6 L MCV 89 90 MCH 31.8 31.8 MCHC 35.5 35.4 RDW 14.9 H 15.1 H Plt Count 79 L 81 L Seg Neutrophils % 80.9 H Sodium 131.8 L Potassium 3.5 L Chloride 97 L Carbon Dioxide 28 Anion Gap 7 BUN 12 Creatinine 0.50 L Est GFR ( Amer) > 60 Glucose 100 Calcium 7.8 L Magnesium 1.5 L 07/28/20 07/28/20 11:18 11:18 Creatine Kinase 106 Troponin I < 0.012 Impressions: Chest X-Ray 07/28/20 10:34 IMPRESSION: NO ACUTE RADIOGRAPHIC FINDING IN THE CHEST. Body Scan Nuclear Medicine 07/31/20 00:00 IMPRESSION: Nonspecific uptake in the lumbar spine. Appearance not typical for metastatic disease. Uptake associated with known right hip fracture. Hip/Pelvis X-Ray 07/31/20 00:00 IMPRESSION: SATISFACTORY POSTOPERATIVE RIGHT HIP. Assessment and Plan - Diagnosis (1) Displaced fracture of right femoral neck Is this a current diagnosis for this admission?: Yes (2) Cervical cancer Qualifiers: Malignant neoplasm of cervix location: unspecified location Qualified Code(s): C53.9 - Malignant neoplasm of cervix uteri, unspecified Is this a current diagnosis for this admission?: Yes (3) Obesity Qualifiers: Obesity type: due to excess calories Body mass index: BMI 35.0-35.9 Is this a current diagnosis for this admission?: Yes (4) Hyperlipidemia Qualifiers: Hyperlipidemia type: unspecified Qualified Code(s): E78.5 - Hyperlipidemia, unspecified Is this a current diagnosis for this admission?: Yes (5) Hypertension Qualifiers: Hypertension type: essential hypertension Qualified Code(s): I10 - Essential (primary) hypertension Is this a current diagnosis for this admission?: Yes (6) Hypothyroidism Qualifiers: Hypothyroidism type: acquired Qualified Code(s): E03.9 - Hypothyroidism, unspecified Is this a current diagnosis for this admission?: Yes (7) Vitamin D deficiency Is this a current diagnosis for this admission?: Yes - Plan Summary Summary: She recently completed her treatments for cervical cancer. She tolerated surgery well for her hip well. She has been getting some fluid and electrolyte support as needed. Hemoglobin is being monitored and she is being transfused as needed. She will need 6 weeks of aspirin daily for DVT prophylaxis per orthopedics. [facility] bed [facility] a [facility] and will transfer there tomorrow. - Time Time Spent with patient: 15-24 minutes Anticipated Discharge Disposition: [facility] Facility Anticipated Discharge Timeframe: within 24 hours
[2020-08-02] MEDS ORDERED: MAGNESIUM SULFATE/D5W 1 GM/100 ML RTUPB IV ONE (17:45)
[2020-08-02] MEDS: DULOXETINE HCL 30 MG CAPSULE.DR PO SCH (21:29)
[2020-08-02] MEDS: TEMAZEPAM 7.5 MG CAPSULE PO PRN (22:51)
[2020-08-03] MEDS: MORPHINE SULFATE 10 MG/ML INJ IV PRN ×2 (05:56→19:31)
[2020-08-03] MEDS: LEVOTHYROXINE SODIUM 0.1 MG TABLET PO SCH (05:56)
[2020-08-03] MEDS: CEPHALEXIN 500 MG CAPSULE PO SCH ×3 (05:56→21:44)
[2020-08-03] MEDS: HEPARIN SOD (PORCINE) 5,000 UNIT/ML 1 ML VIAL SUBCUT SCH ×3 (05:59→21:43)
[2020-08-03] MEDS: FLUOXETINE HCL 20 MG CAPSULE PO SCH (09:52)
[2020-08-03] MEDS: FAMOTIDINE 20 MG TABLET PO SCH ×2 (09:52→21:44)
[2020-08-03] MEDS: MULTIVITAMIN TABLET PO SCH (09:53)
[2020-08-03] MEDS: OXYCODONE-ACETAMINOPHEN 5-325 MG TABLET PO PRN ×2 (09:53→23:18)
[2020-08-03] MEDS: CALCIUM CARBONATE 600 MG TABLET PO SCH ×2 (09:54→17:47)
[2020-08-03] MEDS: POLYETHYLENE GLYCOL 3350 POWDER 17 GM/1 PACKET PO SCH (10:24)
[2020-08-03] MEDS: CYANOCOBALAMIN (VITAMIN B-12) INJ 1000 MCG/1 ML VIAL IM SCH (10:29)
[2020-08-03] MEDS: ACETAMINOPHEN 325 MG TABLET PO PRN ×2 (13:21→21:44)
--- NOTE | 2020-08-03 17:24 | PDOC TRANSFER SUMMARY ---
Impression - Admit/DC Date/PCP Admission Date/Primary Care Provider: 07/28/20 13:28 GINI DENG PA-C Discharge Date: 08/03/20 - Discharge Diagnosis (1) Displaced fracture of right femoral neck Is this a current diagnosis for this admission?: Yes (2) Cervical cancer Is this a current diagnosis for this admission?: Yes (3) Obesity Is this a current diagnosis for this admission?: Yes (4) Hyperlipidemia Is this a current diagnosis for this admission?: Yes (5) Hypertension Is this a current diagnosis for this admission?: Yes (6) Hypothyroidism Is this a current diagnosis for this admission?: Yes (7) Vitamin D deficiency Is this a current diagnosis for this admission?: Yes - Assessment Summary: She recently completed her treatments for cervical cancer. She tolerated surgery well for her hip well. She has been getting some fluid and electrolyte support as needed. Hemoglobin is being monitored and she is being transfused as needed. She will need 6 weeks of aspirin daily for DVT prophylaxis per orthopedics. She [facility] a bed at a detention facility and will transfer there tomorrow. - Additional Information Resuscitation Status: Full Code Discharge Diet: Regular Discharge Activity: Supervised Activity Referrals: [facility] [Outside] HARISH SANTIAGO JR, DO [ACTIVE PROVISIONAL STAFF] - 08/15/20 8:40 am () Prescriptions: Aspirin [Aspirin 325 mg Tablet] 325 mg PO DAILY #30 tablet Clonazepam [Klonopin] 1 mg PO DAILYP PRN #3 PRN Reason: PANIC ATTACK Oxycodone HCl/Acetaminophen [Percocet 5-325 mg Tablet] 1 tab PO Q6HP PRN #10 tablet PRN Reason: Home Medications: Levothyroxine Sodium 100 mcg PO DAILY 01/06/20 Duloxetine HCl [Cymbalta 30 mg Capsule.dr] 30 mg PO DAILY 07/28/20 Aspirin [Aspirin 325 mg Tablet] 325 mg PO DAILY #30 tablet 08/03/20 Calcium Carbonate [Caltrate 600 mg Tablet] 600 mg PO BID tablet 08/03/20 Clonazepam [Klonopin] 1 mg PO DAILYP PRN #3 08/03/20 Oxycodone HCl/Acetaminophen [Percocet 5-325 mg Tablet] 1 tab PO Q6HP PRN #10 tablet 08/03/20 Polyethylene Glycol 3350 [Miralax Powder 17 gm/Packet] 17 gm PO DAILY powd.pack 08/03/20 History of Present Illiness History of Present Illness: WES RAINEY is a 74 year old female past medical history of hyperlipidemia, hypertension, hypothyroidism, arthritis, gastric bypass, cervical cancer status post chemoradiation, presenting to ED after mechanical fall. Patient is stating that she was getting up to go to the bathroom and her foot got tangled in her comforter and she fell to the ground, she denies sustaining any head trauma or passing out, she denies any lightheaded or palpitation or headache before the fall, patient denies any headache, lightheadedness, focal neurological symptoms, fever, chills, nausea, vomiting, diarrhea, constipation or any urinary symptoms. In ED of right hip x-ray showed proximal intertrochanteric fracture with significant varus angulation on foreshortening of the site of fracture. Orthopedic surgery was consulted and patient is planned to have surgery, medicine was conated for admision for medical management. Hospital Course Hospital Course: Her surgery was delayed until she can get a bone scan to confirm that she did not have any metastatic disease that involved the area in question, which would a complicated surgical repair. The bone scan did not show any questionable abnormal uptake and so she proceeded to surgery, which she tolerated well. She did require 1 transfusion of 2 units of packed red blood cells. She was then started on physical therapy. She will continue her therapy at a detention facility. Orthopedics recommended full-strength aspirin daily for 6 weeks for DVT prophylaxis. She will follow-up with orthopedics in 10 to 14 days. Her labs and examination were reassuring and she was discharged in stable condition. Physical Exam Vital Signs: Temp Pulse Resp BP Pulse Ox 98.5 F 86 17 108/57 L 95 08/03/20 16:00 08/03/20 16:00 08/03/20 16:00 08/03/20 16:00 08/03/20 16:00 Intake & Output 08/02/20 08/03/20 08/04/20 06:59 06:59 06:59 Intake Total 1196 350 496 Output Total 2275 250 Balance -1079 100 496 Weight 103.1 kg 100.3 kg General appearance: PRESENT: no acute distress, obese, well-developed, well- nourished Head exam: PRESENT: atraumatic, normocephalic Neck exam: ABSENT: carotid bruit, JVD, lymphadenopathy, thyromegaly Respiratory exam: PRESENT: clear to auscultation cullen. ABSENT: rales, rhonchi, wheezes Cardiovascular exam: PRESENT: RRR. ABSENT: diastolic murmur, rubs, systolic murmur GI/Abdominal exam: PRESENT: normal bowel sounds, soft. ABSENT: distended, guarding, mass, organolmegaly, rebound, tenderness Extremities exam: PRESENT: full ROM, other - Left hip surgical wound looks clean, no sign of discharge, no erythema, no tenderness.. ABSENT: calf tenderne ss, clubbing, pedal edema Neurological exam: PRESENT: alert, awake, oriented to person, oriented to place, oriented to time, oriented to situation, CN II-XII grossly intact. ABSENT: motor sensory deficit Results Laboratory Results: WBC 3.4 10^3/uL (4.0-10.5) L 08/02/20 06:40 RBC 2.74 10^6/uL (3.72-5.28) L 08/02/20 06:40 Hgb 8.7 g/dL (12.0-15.5) L 08/02/20 06:40 Hct 24.6 % (36.0-47.0) L 08/02/20 06:40 MCV 90 fl (80-97) 08/02/20 06:40 MCH 31.8 pg (27.0-33.4) 08/02/20 06:40 MCHC 35.4 g/dL (32.0-36.0) 08/02/20 06:40 RDW 15.1 % (11.5-14.0) H 08/02/20 06:40 Plt Count 81 10^3/uL (150-450) L 08/02/20 06:40 Lymph % (Auto) 6.2 % (13-45) L 08/01/20 22:42 [place] % (Auto) 8.8 % (3-13) 08/01/20 22:42 Eos % (Auto) 3.7 % (0-6) 08/01/20 22:42 Baso % (Auto) 0.4 % (0-2) 08/01/20 22:42 Absolute Neuts (auto) 2.9 10^3/uL (1.7-8.2) 08/01/20 22:42 Absolute Lymphs (auto) 0.2 10^3/uL (0.5-4.7) L 08/01/20 22:42 Absolute Monos (auto) 0.3 10^3/uL (0.1-1.4) 08/01/20 22:42 Absolute Eos (auto) 0.1 10^3/uL (0.0-0.6) 08/01/20 22:42 Absolute Basos (auto) 0.0 10^3/uL (0.0-0.2) 08/01/20 22:42 Total Counted 100 07/28/20 11:18 Seg Neutrophils % 80.9 % (42-78) H 08/01/20 22:42 Seg Neuts % (Manual) 88 % (42-78) H 07/28/20 11:18 Lymphocytes % (Manual) 10 % (13-45) L 07/28/20 11:18 Monocytes % (Manual) 2 % (3-13) L 07/28/20 11:18 Eosinophils % (Manual) 0 % (0-6) 07/28/20 11:18 Basophils % (Manual) 0 % (0-2) 07/28/20 11:18 Abs Neuts (Manual) 3.6 10^3/uL (1.7-8.2) 07/28/20 11:18 Abs Lymphs (Manual) 0.4 10^3/uL (0.5-4.7) L 07/28/20 11:18 Abs Monocytes (Manual) 0.1 10^3/uL (0.1-1.4) 07/28/20 11:18 Absolute Eos (Manual) 0.0 10^3/uL (0.0-0.6) 07/28/20 11:18 Abs Basophils (Manual) 0.0 10^3/uL (0.0-0.2) 07/28/20 11:18 Toxic Granulation SLIGHT 07/28/20 11:18 Platelet Estimate Cancelled 08/01/20 05:45 Platelet Comment DECREASED 07/28/20 11:18 Anisocytosis SLIGHT 07/28/20 11:18 PT 14.7 SEC (11.4-15.4) 07/31/20 06:08 INR 1.13 07/31/20 06:08 Sodium 131.8 mmol/L (137-145) L 08/02/20 06:40 Potassium 3.5 mmol/L (3.6-5.0) L 08/02/20 06:40 Chloride 97 mmol/L (98-107) L 08/02/20 06:40 Carbon Dioxide 28 mmol/L (22-30) 08/02/20 06:40 Anion Gap 7 (5-19) 08/02/20 06:40 BUN 12 mg/dL (7-20) 08/02/20 06:40 Creatinine 0.50 mg/dL (0.52-1.25) L 08/02/20 06:40 Est GFR ( Amer) > 60 (>60) 08/02/20 06:40 Est GFR (MDRD) Non-Af > 60 (>60) 08/02/20 06:40 Glucose 100 mg/dL (75-110) 08/02/20 06:40 Calcium 7.8 mg/dL (8.4-10.2) L 08/02/20 06:40 Magnesium 1.5 mg/dL (1.6-2.3) L 08/02/20 06:40 Total Bilirubin 1.0 mg/dL (0.2-1.3) 07/31/20 06:08 Direct Bilirubin 0.3 mg/dL (0.0-0.4) 07/31/20 06:08 Neonat Total Bilirubin Not Reportable 07/31/20 06:08 Neonat Direct Bilirubin Not Reportable 07/31/20 06:08 Neonat Indirect Bili Not Reportable 07/31/20 06:08 AST 16 U/L (14-36) 07/31/20 06:08 ALT 11 U/L (<35) 07/31/20 06:08 Alkaline Phosphatase 66 U/L (38-126) 07/31/20 06:08 Creatine Kinase 106 U/L (30-135) 07/28/20 11:18 Troponin I < 0.012 ng/mL 07/28/20 11:18 Total Protein 4.8 g/dL (6.3-8.2) L 07/31/20 06:08 Albumin 2.6 g/dL (3.5-5.0) L 07/31/20 06:08 Vitamin D 25-Hydroxy 13.9 ng/mL (14.7-68.3) L 07/28/20 11:18 Urine Color YELLOW 07/28/20 12:13 Urine Appearance SLIGHTLY-CLOUDY 07/28/20 12:13 Urine pH 5.0 (5.0-9.0) 07/28/20 12:13 Ur Specific [place] 1.019 07/28/20 12:13 Urine Protein 30 mg/dL (NEGATIVE) H 07/28/20 12:13 Urine Glucose (UA) NEGATIVE mg/dL (NEGATIVE) 07/28/20 12:13 Urine Ketones NEGATIVE mg/dL (NEGATIVE) 07/28/20 12:13 Urine Blood NEGATIVE (NEGATIVE) 07/28/20 12:13 Urine Nitrite NEGATIVE (NEGATIVE) 07/28/20 12:13 Urine Bilirubin NEGATIVE (NEGATIVE) 07/28/20 12:13 Urine Urobilinogen 2.0 mg/dL (<2.0) H 07/28/20 12:13 Ur Leukocyte Esterase LARGE (NEGATIVE) H 07/28/20 12:13 Urine WBC (Auto) 39 /HPF 07/28/20 12:13 Urine RBC (Auto) 5 /HPF 07/28/20 12:13 U Hyaline Cast (Auto) 1 /LPF 07/28/20 12:13 Squamous Epi Cells Auto 5 /HPF 07/28/20 12:13 Urine Mucus (Auto) OCC /LPF 07/28/20 12:13 Urine Ascorbic Acid NEGATIVE (NEGATIVE) 07/28/20 12:13 COVID-19 Source See comment 07/28/20 18:30 COVID-19 (FENG) Not Detected (Not Detect) 07/28/20 18:30 Slides for Path Review Cancelled 08/01/20 05:45 Blood Type O POSITIVE 08/01/20 08:48 Blood Type Confirm O POSITIVE 08/01/20 08:52 Antibody Screen NEGATIVE 08/01/20 08:48 Crossmatch See Detail 08/01/20 08:48 07/28/20 11:18 Troponin I < 0.012 Impressions: Chest X-Ray 07/28/20 10:34 IMPRESSION: NO ACUTE RADIOGRAPHIC FINDING IN THE CHEST. Hip/Pelvis X-Ray 07/28/20 10:34 IMPRESSION: Acute right proximal femur intertrochanteric fracture with significant varus angulation and foreshortening at the fracture site Body Scan Nuclear Medicine 07/31/20 00:00 IMPRESSION: Nonspecific uptake in the lumbar spine. Appearance not typical for metastatic disease. Uptake associated with known right hip fracture. Hip/Pelvis X-Ray 07/31/20 00:00 IMPRESSION: SATISFACTORY POSTOPERATIVE RIGHT HIP. Plan Time Spent: Greater than 30 Minutes Stroke Is this a Stroke Patient?: No Acute Heart Failure Is this a Heart Failure Patient?: No
[2020-08-03] MEDS: DULOXETINE HCL 30 MG CAPSULE.DR PO SCH (21:44)
[2020-08-03] MEDS: TEMAZEPAM 7.5 MG CAPSULE PO PRN (23:04)
[2020-08-04] MEDS: CEPHALEXIN 500 MG CAPSULE PO SCH (05:39)
[2020-08-04] MEDS: LEVOTHYROXINE SODIUM 0.1 MG TABLET PO SCH (05:39)
[2020-08-04] MEDS: MORPHINE SULFATE 10 MG/ML INJ IV PRN ×2 (05:40→12:02)
[2020-08-04] MEDS: HEPARIN SOD (PORCINE) 5,000 UNIT/ML 1 ML VIAL SUBCUT SCH (05:41)
[2020-08-04] MEDS: MULTIVITAMIN TABLET PO SCH (11:49)
[2020-08-04] MEDS: CALCIUM CARBONATE 600 MG TABLET PO SCH (11:49)
[2020-08-04] MEDS: CYANOCOBALAMIN (VITAMIN B-12) INJ 1000 MCG/1 ML VIAL IM SCH (11:49)
[2020-08-04] MEDS: FAMOTIDINE 20 MG TABLET PO SCH (11:49)
[2020-08-04] MEDS: POLYETHYLENE GLYCOL 3350 POWDER 17 GM/1 PACKET PO SCH (11:55)
[2020-08-04 12:27] VITALS: BP 119/60
== END 2020-08-04 13:25 | DRG 522 ==
LOC: ER 08:57 → EH 13:28 → 4N 18:48
PROVIDERS: ADMIT Internal Medicine; ATTEND Family Medicine
PROC: 0SRR0J9 Replacement of Right Hip Joint, Femoral Surface with Synthetic Substitute, Cemented, Open Approach (ICD-10-PCS; principal; 2020-07-31 15:00)
PROC: 30233N1 Transfusion of Nonautologous Red Blood Cells into Peripheral Vein, Percutaneous Approach (ICD-10-PCS; 2020-08-01)
DX: S72.141A Displaced intertrochanteric fracture of right femur, initial encounter for closed fracture (principal); C53.9 Malignant neoplasm of cervix uteri, unspecified; E78.00 Pure hypercholesterolemia, unspecified; I10 Essential (primary) hypertension; E03.9 Hypothyroidism, unspecified; E55.9 Vitamin D deficiency, unspecified; F41.8 Other specified anxiety disorders; E66.09 Other obesity due to excess calories; W18.39XA Other fall on same level, initial encounter; Y93.89 Activity, other specified; Y92.018 Other place in single-family (private) house as the place of occurrence of the external cause; Z20.828 Contact with and (suspected) exposure to other viral communicable diseases; Z96.652 Presence of left artificial knee joint; Z90.710 Acquired absence of both cervix and uterus; Z98.84 Bariatric surgery status; Z68.35 Body mass index [BMI] 35.0-35.9, adult
CPT/HCPCS: 01210; 36415; 36430; 36591; 51702; 71045; 78306; 80048; 80053; 81001; 82306; 82550; 83735; 84484; 85025; 85027; 85610; 86850; 86900; 86901; 86920; 87086; 87635; 88304; 88311; 93005; 93010; 94667; 94668; 94799; 96361; 96374; 96375; 99285; A9503; C1713; C9803; J0690; J1642; J1644; J1885; J2250; J2270; J2405; J2704; J3010; J3370; J3420; J3475; J3490; J7030; J7060; P9016; Q9969

== ENCOUNTER → 2020-10-03 | Outpatient (CLI) | payer MEDICARE, OTHER ==
--- NOTE | 2020-10-03 14:33 | RADIOLOGY REPORT (SQ) ---
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 0 ml; Total Saline Delivered: 44.9 ml RENAL FUNCTION: Creatinine 0.7 COMPARISON: 05/10/2020 TECHNIQUE: CT scan of the chest performed using helical scanning technique with dynamic intravenous contrast injection. Images reviewed with lung, soft tissue and bone windows. Reconstructed coronal a nd sagittal MPR images reviewed. All images stored on PACS. All CT scanners at this facility use dose modulation, iterative reconstruction, and/or weight based d osing when appropriate to reduce radiation dose to as low as reasonably achievable (ALARA). [facility]: Dose Right [facility]: CareDose [facility]: Dose Right [facility]: Teradose 4D [facility]: Flipkart RADIATION DOSE: CT Rad equipment meets quality standard of care and radiation dose reduction techniq ues were employed. CTDIvol: 6.9 - 17.1 mGy. DLP: 3078 mGy-cm. . LIMITATIONS: None. FINDINGS: AXILLAE: No adenopathy. CHEST WALL: No masses. No subcutaneous air. LUNGS: No nodules or masses. No pneumothorax. No infiltrates. PLEURA: No effusions. No calcifications. THYROID: No masses or significant asymmetry. HILAR AND MEDIASTINAL STRUCTURES: No identified masses or abnormal nodes. AORTA AND GREAT VESSELS: No aneurysm. No dissection. PULMONARY ARTERIES: No identified pulmonary emboli. Study not optimized for the pulmonary arteries. HEART: No pericardial effusion. HARDWARE AND LIFELINES: None. BONES: No significant finding. OTHER: No other significant finding. IMPRESSION: There is no evidence of metastatic disease in the thorax. COMPARISON: 05/10/2020 RADIATION DOSE: CT Rad equipment meets quality standard of care and radiation dose reduction techniq ues were employed. CTDIvol: 6.9 - 17.1 mGy. DLP: 3078 mGy-cm. mGy. TECHNIQUE: CT scan of the abdomen and pelvis performed with intravenous and oral contrast using lisa matt scanning technique with dynamic intravenous contrast injection. Images reviewed with lung, soft tissue and bone windows. Reconstructed coronal and sagittal MPR images reviewed. Delayed images for evaluation of the urinary system also acquired and evaluated. All images stored on PACS. All CT scanners at this facility use dose modulation, iterative reconstruction, and/or weight based d osing when appropriate to reduce radiation dose to as low as reasonably achievable (ALARA). [facility]: Dose Right [facility]: SureCare [facility]: Dose Right [facility]: Teradose 4D [facility]: Flip[employer]art FINDINGS: LIVER: Normal size. No masses. No dilated ducts. SPLEEN: Normal size. No focal lesions. PANCREAS: No masses. No significant calcifications. No adjacent inflammation or peripancreatic flui d collections. Pancreatic duct not dilated. GALLBLADDER: Surgically absent. ADRENAL GLANDS: No significant masses or asymmetry. RIGHT KIDNEY AND URETER: Small renal sinus cysts. No solid masses. No significant calcifications. No hydronephrosis or hydroureter. LEFT KIDNEY AND URETER: Small renal sinus cysts. No solid masses. No significant calcifications. No hydronephrosis or hydroureter. AORTA AND VESSELS: No aneurysm. No dissection. Renal arteries, SMA, celiac without stenosis. RETROPERITONEUM: No retroperitoneal adenopathy, hemorrhage or masses. LARGE AND SMALL BOWEL: No dilatation. No masses. No wall thickening. APPENDIX: Not identified. ABDOMINAL WALL: No hernia or masses. PERITONEAL CAVITY: No free air. No free fluid. No peritoneal implants or masses. PELVIS: No mass or free fluid. Normal bladder. BONES: Right hip arthroplasty. No significant osseous lesions. OTHER: No other significant finding. IMPRESSION: There is no evidence of metastatic disease in the abdomen or pelvis. Small renal sinus cysts are seen bilaterally. TECHNICAL DOCUMENTATION: JOB ID: [id number] Quality ID # [id number]: Final reports with documentation of one or more dose reduction techniques (e.g., Au tomated exposure control, adjustment of the mA and/or kV according to patient size, use of iterative reconstruction technique) 2010 [employer]- All Rights Reserved Reading location - IP/workstation name: [email or web address]
== END ==
LOC: RAD 10:01
PROVIDERS: ATTEND Internal Medicine
DX: C54.3 Malignant neoplasm of fundus uteri (principal)
CPT/HCPCS: 71260; 74177; 82565